=== PATIENT | male | born 1945 | race Caucasian/White ===

== ENCOUNTER → 2017-09-23 10:59 | Outpatient (CLI) | payer OTHER, MEDICARE, SELFPAY ==
[2017-09-23 12:15] LABS: Prostate Specific Ag, Diagnost 1.87 ng/mL (0.0-4.0)
== END ==
PROVIDERS: PCP Family Medicine; Visit Provider Urology
DX: R97.20 Elevated prostate specific antigen [PSA] (principal)
CPT/HCPCS: 36415; 84153

== ENCOUNTER → 2017-10-10 16:05 | Outpatient (CLI) | payer OTHER, MEDICARE, SELFPAY ==
--- NOTE | 2017-10-10 | XR_ITS ---
XR foot RT min 3V, XR foot LT min 3V Ordering Physician: Susana Tineo DPM Patient Age: 71 years: Male HISTORY: Increased pain at right foot bunion TECHNIQUE: Right foot 3 view weightbearing Left foot 3 view weightbearing COMPARISON :None ========= ...... RIGHT FOOT 3 view weightbearing Significant bunion deformity right foot. Asymmetric Hallux valgus deformity at right foot . Metatarsal-phalangeal angle 30 degree First-second Intermetatarsal angle AASHISH measures 13 up to 14 degrees. Modest but Adequate appearing plantar arch. Minimal spurring at insertion of Achilles tendon. Bones well mineralized. There is perhaps some mild degenerative changes at first MTP joint. Otherwise joint spaces fairly well-maintained.. Only borderline narrowing at the the IP joint of fourth toe and PIP joint third toe . Relative cortical thickening along the proximal, lateral aspect of the fourth metatarsal. This is seen bilaterally anatomical variation fourth metatarsal IMPRESSION: ===== Moderately pronounced hallux valgus deformity at the right foot ========= LEFT FOOT 3 view weightbearing Satisfactory relationships are seen at the left foot with only some mild prominence of the medial aspect of the first metatarsal head but no significant bunion deformity. . Metatarsal-phalangeal angle 15 degree First-second Intermetatarsal angle AASHISH measures 9 degrees.-Normal Bones well mineralized. Adequate plantar arch. Arthritic changes at p IP joint of toe noted. Bilaterally changes at DIP joint second and third toe. IMPRESSION==== Left foot intact with. No bunion deformity on left . Only mild degenerative changes at PIP joint fifth toe noted 1945
== END ==
PROVIDERS: Visit Provider Podiatrist
DX: M20.11 Hallux valgus (acquired), right foot (principal)
CPT/HCPCS: 73630

== ENCOUNTER → 2018-01-30 10:45 | Outpatient (CLI) | payer OTHER, MEDICARE, SELFPAY ==
--- NOTE | 2018-01-30 10:59 | XR_ITS ---
XR DEXA axial skeleton HISTORY: ITS.REASON: OSTEOPENIA ORDERING PHYSICIAN: Heber Campos MD PATIENT AGE: 72 years COMPARISON: 06/21/2014 FINDINGS: The BMD measured at the Right femoral neck is 0.677 g/cm squared with a T score of -3.0. The average density of the lumbar spine is 1.249 with a T score of 0.2. Decreased by 1.3% compared to 06/21/2014. The mean density of the hips is 0.875 with a T score of -1.6 which is decreased by 2.7% compared to the previous exam. IMPRESSION: Low bone density with a T score of -3.0 involving the right femur with high fracture risk. Treatment is suggested. Recommend follow-up exam in one year to monitor response.
[2018-01-31 15:17] LABS: Vitamin D 25 Hydroxy 16.7 ng/mL (30.0-100.0)
== END ==
PROVIDERS: PCP Family Medicine; Visit Provider Family Medicine
DX: M85.80 Other specified disorders of bone density and structure, unspecified site (principal)
CPT/HCPCS: 36415; 77080; 82652

== ENCOUNTER → 2018-04-24 14:43 | Outpatient (CLI) | payer OTHER, MEDICARE, SELFPAY ==
[2018-04-24 16:01] LABS: Prostate Specific Ag, Diagnost 0.84 ng/mL (0.0-4.0)
== END ==
PROVIDERS: Visit Provider Family Medicine
DX: C61 Malignant neoplasm of prostate (principal); E55.9 Vitamin D deficiency, unspecified
CPT/HCPCS: 36415; 82652; 84153

== ENCOUNTER → 2018-06-27 12:44 | Outpatient (POV) | payer OTHER, MEDICARE, SELFPAY ==
[2018-06-28 15:23] LABS: Prostate Specific Ag, Diagnost 0.9 ng/mL (0.0-4.0)
== END ==
PROVIDERS: Family Provider Family Medicine; PCP Family Medicine; Visit Provider Dermatology
DX: Z85.46 Personal history of malignant neoplasm of prostate (principal)
CPT/HCPCS: 36415; 84153; G0103

== ENCOUNTER → 2018-08-18 10:22 | Outpatient (CLI) | payer OTHER, SELFPAY ==
[2018-08-18 10:42] LABS: Basophils # 0.1 K/mm3 (0-0.2); Basophils % 0.8 % (0.1-2.0); Eosinophils # 0.2 K/mm3 (0.0-0.4); Eosinophils % 2.6 % (0.1-12.0); Hematocrit 43.9 % (42.0-52.0); Lymphocytes # 1.3 K/mm3 (0.7-4.5); Lymphocytes % 16.6 % (10-50); Mean Corpuscular Hemoglobin 29.3 pg (27.0-31.2); Mean Corpuscular Volume 91.6 fl (80-94); Mean Platelet Volume 6.7 fl (7.4-10.4); Monocytes # 0.5 K/mm3 (0.1-1.0); Monocytes % 6.7 % (1.7-9.3); Neutrophils # 5.6 K/mm3 (1.8-7.8); Neutrophils % 73.3 % (37.0-80.0); Platelet Count 328 K/mm3 (142-424); Red Blood Count 4.79 M/mm3 (4.60-6.20); Red Cell Distribution Width 13.3 % (11.5-17.5); White Blood Count 7.7 K/mm3 (4.8-10.8)
[2018-08-18 11:35] LABS: Erythrocyte Sedimentation Rate 11 mm/hr (0-20)
[2018-08-18 13:05] LABS: Alanine Aminotransferase 22 U/L (12-78); Albumin Level 3.1 gm/dL (3.4-5.0); Albumin/Globulin Ratio 0.9 (1.1-1.8); Alkaline Phosphatase 96 U/L (46-116); Anion Gap 16.1 mEq/L (5-15); Aspartate Amino Transferase 13 U/L (15-37); Bilirubin,Total 0.4 mg/dL (0.2-1.0); Blood Urea Nitrogen 14 mg/dL (7-18); Carbon Dioxide 23 mmol/L (21.0-32.0); Chloride 106 mmol/L (98-107); Creatinine,Serum 1.76 mg/dL (0.70-1.30); Estimated Glomerular Filt Rate 38 ml/min (>60); Ferritin 29 ng/mL (8-388); GFR (African American) 46 ML/MIN (>60); Globulin 3.3 gm/dl (1.3-3.2); Glucose 87 mg/dL (74-106); Potassium 4.1 mmoL/L (3.5-5.1); Sodium 141 mmol/L (136-145); Total Protein,Serum 6.4 gm/dL (6.4-8.2)
[2018-08-18 13:08] LABS: C-Reactive Protein < 0.2 mg/L (0.0-0.9)
[2018-08-19 10:12] LABS: Iron 113 ug/dL (38-169); UIBC 194 ug/dL (111-343)
[2018-08-21 09:35] LABS: Iron Saturation 37 % (15-55); Vitamin B12 <150 pg/mL (232-1245); Vitamin D 25 Hydroxy 25.4 ng/mL (30.0-100.0)
== END ==
PROVIDERS: Visit Provider Internal Medicine Gastroenterology
DX: K50.90 Crohn's disease, unspecified, without complications (principal)
CPT/HCPCS: 36415; 80053; 82607; 82652; 82728; 83540; 83550; 85025; 85651; 86140

== ENCOUNTER → 2019-02-16 16:15 | Outpatient (CLI) | payer OTHER, SELFPAY ==
[2019-02-19 15:39] LABS: Testosterone,Free 3.5 pg/mL (6.6-18.1)
== END ==
PROVIDERS: Visit Provider Family Medicine
DX: C61 Malignant neoplasm of prostate (principal); R79.89 Other specified abnormal findings of blood chemistry
CPT/HCPCS: 36415; 84402

== ENCOUNTER → 2019-02-23 07:30 | Outpatient (CLI) | payer OTHER, SELFPAY ==
[2019-02-27 19:55] LABS: Testosterone, Total, LC/MS 266.1 ng/dL (264.0-916.0); Testosterone,Free 6.8 pg/mL (6.6-18.1)
== END ==
PROVIDERS: Visit Provider Urology
DX: C61 Malignant neoplasm of prostate (principal); R79.89 Other specified abnormal findings of blood chemistry
CPT/HCPCS: 36415; 84402; 84403

== ENCOUNTER → 2019-04-02 11:14 | Outpatient (CLI) | payer OTHER, SELFPAY ==
--- NOTE | 2019-04-02 11:15 | CT_ITS ---
CT heart w calcium score INDICATION: Evaluate for coronary artery disease ITS.REASON: d ORDERING PHYSICIAN: Narinder Tejeda MD PATIENT AGE: 73 years COMPARISON: TECHNIQUE: Contrast Used:None Oral Contrast: None Axial images were obtained. Sagittal and coronal reformatted images are reviewed as well. All CT scans at the facility use one or more dose reduction, viz: automated exposure control, ma/kV adjustment per patient size (including targeted exams where dose is matched to indication, i.e. head), or iterative reconstruction technique. FINDINGS: The coronary artery calcium score is 67 suggesting a mild plaque burden with moderate cardiovascular disease risk. Selected images show moderate sized hiatal hernia. There is also some calcification of the aortic valve. IMPRESSION: Coronary calcium score of 67
== END ==
PROVIDERS: PCP Family Medicine; Visit Provider Internal Medicine Cardiovascular Disease
DX: R06.02 Shortness of breath (principal)
CPT/HCPCS: 75571; 93306

== ENCOUNTER → 2019-04-02 12:53 | Outpatient (CLI) | payer OTHER, SELFPAY ==
--- NOTE | 2019-04-02 13:00 | CA_ITS ---
PROCEDURE: 2-D M-mode and color Doppler study INDICATIONS FOR THE TEST: Chest pain X COPD Heart Murmur Tobacco Smoking Palpitations Fatigue Syncope Edema Hypertension Diabetes Mellitus Rheumatic Fever SOB DYSON Obesity Hyperlipidemia Family History HD Additional History PATIENT INFORMATION HEIGHT: 70 WEIGHT:162 GENDER: Male B/P:110/70 2-D/M-MODE INTERPRETATION: 2-D MEASUREMENTS OBSERVED VALUES IN CMS Right Ventricular Dimension (RVDd) 2.1 Interventricular Septum (Thickness)(IVsd) 1.0 Left Ventricular Internal Dimensions(LVIDd) 5.3 Left Ventricular Posterior Wall (Thickness)(LVPWd) 1.0 Aortic Root 3.7 Aortic Cusp Separation 1.1 Left Atrial Dimensions (LAD) 3.7 2D 1. Left atrium is normal size, left ventricle is normal size, there is no concentric left ventricular hypertrophy, visually estimated ejection fraction 55% with no regional wall motion abnormality. 2. The right atrium and right ventricle are normal size and contractility. 3. The aortic valve is thickened and calcified leaflet continue to display mobility. 4. The mitral and tricuspid valve leaflets are minimally thickened. 5. The pulmonic valve is poorly visualized. 6. No significant pericardial effusion noted. DOPPLER INTERROGATION: Doppler interrogation of the aortic, mitral and tricuspid valvular presence of mild mitral and tricuspid regurgitation, tricuspid regurgitation jet velocity is inadequate for calculation of the right ventricular systolic pressure, grade 1 diastolic dysfunction seen without tissue Doppler evidence of raised left atrial pressure. Inferior vena cava is not well visualized. CONCLUSION: 1. Normal left ventricular size, visually estimated ejection fraction 55% with no regional wall motion abnormality, there is no concentric left ventricular hypertrophy, diastolic parameters are within normal range. 2. Mild mitral and tricuspid regurgitation. 3. No significant pericardial effusion noted.
== END ==
PROVIDERS: Visit Provider Internal Medicine Cardiovascular Disease
DX: R89.9 Unspecified abnormal finding in specimens from other organs, systems and tissues (principal); R07.9 Chest pain, unspecified
CPT/HCPCS: 93306

== ENCOUNTER → 2019-04-04 11:38 | Outpatient (CLI) | payer OTHER, SELFPAY ==
--- NOTE | 2019-04-04 11:40 | NM_ITS ---
CARDIOLITE SPECT MYOCARDIAL PERFUSION LEXISCAN, REST AND STRESS: History: Shortness of breath, chest pain Procedure: Patient received 0.4 mg of intravenous Lexiscan, resting heart rate was 86 beats per resting blood pressure 142/90. With Lexiscan maximum heart achieved was 114 bpm which is less than 85% of the maximum predicted heart rate and a blood pressure was 140/75. With Lexiscan patient complained of nausea. Electrocardiogram: Resting electrocardiogram showed sinus rhythm, with Lexiscan there is less than 1.[address] segment depression noted from the baseline EKG. The EKG portion of the Lexiscan Myoview is nondiagnostic. Cardiac stress and resting SPECT images: Cardiac stress and resting SPECT images were obtained using technetium 99 Myoview 32.2 mCi stress and 10.2 mCi at rest. Gated SPECT further analysis of segmental wall motion and calculation of the ejection fraction also done. Cardiac stress and resting SPECT images show uniform myocardial activity without segmental perfusion abnormality, computer derived ejection fraction is 46% with no regional wall motion abnormality, right ventricle is normal size and contractility. Conclusion: 1. The EKG portion of the Lexiscan Myoview is nondiagnostic. 2. No scintigraphic evidence of reversible ischemia seen, right ejection fraction is 46% with no regional wall motion abnormality, right ventricle is normal size and contractility. 3. The Lexiscan Myoview study.
== END ==
PROVIDERS: PCP Internal Medicine Cardiovascular Disease; Visit Provider Internal Medicine Cardiovascular Disease
DX: R89.9 Unspecified abnormal finding in specimens from other organs, systems and tissues (principal); R06.02 Shortness of breath
CPT/HCPCS: 78452; 93017; A9502; J2785

== ENCOUNTER → 2019-07-17 08:06 | Outpatient (POV) | payer OTHER, SELFPAY | PROVIDERS: Visit Provider Dermatology | DX: Z00.00 Encounter for general adult medical examination without abnormal findings (principal) ==

== ENCOUNTER → 2019-08-28 08:09 | Outpatient (POV) | payer OTHER, SELFPAY | PROVIDERS: Visit Provider Dermatology | DX: Z00.00 Encounter for general adult medical examination without abnormal findings (principal) ==

== ENCOUNTER → 2019-12-05 13:42 | Outpatient (CLI) | payer OTHER, SELFPAY ==
[2019-12-05 14:54] LABS: Basophils % 0.3 % (0.1-2.0); Eosinophils % 0.2 % (0.1-12.0); Hematocrit 43.7 % (42.0-52.0); Hemoglobin 14.2 g/dL (14.1-18.0); Lymphocytes # 0.5 K/mm3 (0.7-4.5); Lymphocytes % 8.1 % (10-50); Mean Corpuscular HGB Conc 32.5 g/dL (31.8-35.4); Mean Corpuscular Hemoglobin 29.1 pg (27.0-31.2); Mean Corpuscular Volume 89.7 fl (80-94); Mean Platelet Volume 7.8 fl (7.4-10.4); Monocytes # 0.4 K/mm3 (0.1-1.0); Monocytes % 5.6 % (1.7-9.3); Neutrophils # 5.6 K/mm3 (1.8-7.8); Neutrophils % 85.7 % (37.0-80.0); Platelet Count 221 K/mm3 (142-424); Red Blood Count 4.87 M/mm3 (4.60-6.20); Red Cell Distribution Width 12.9 % (11.5-17.5); White Blood Count 6.6 K/mm3 (4.8-10.8)
[2019-12-05 14:56] LABS: MANUAL DIFFERENTIAL MANUAL DIFFERENTIAL (MANUAL DIFF)
[2019-12-05 17:00] LABS: Lymphocytes % 6 % (10-50); Monocytes % 2 % (2-9); Neutrophils % 92 % (42-76); Platelet Estimate Normal; RBC Morphology Normal; Total Cells Counted 100
== END ==
PROVIDERS: Visit Provider Family Medicine
DX: R50.9 Fever, unspecified (principal); R52 Pain, unspecified; J10.1 Influenza due to other identified influenza virus with other respiratory manifestations
CPT/HCPCS: 36415; 85007; 85025; 87275; 87276

== ENCOUNTER 2019-12-08 23:54 | Observation (INO) ==
[2019-12-09 00:32] LABS: Basophils % 0.2 % (0.1-2.0); Eosinophils % 0.2 % (0.1-12.0); Hematocrit 46.4 % (42.0-52.0); Hemoglobin 15.4 g/dL (14.1-18.0); Lymphocytes # 0.7 K/mm3 (0.7-4.5); Lymphocytes % 9.7 % (10-50); Mean Corpuscular HGB Conc 33.2 g/dL (31.8-35.4); Mean Corpuscular Volume 86.8 fl (80-94); Monocytes # 0.4 K/mm3 (0.1-1.0); Monocytes % 5.1 % (1.7-9.3); Neutrophils % 84.8 % (37.0-80.0); Platelet Count 211 K/mm3 (142-424); Red Blood Count 5.35 M/mm3 (4.60-6.20); Red Cell Distribution Width 12.5 % (11.5-17.5); White Blood Count 7.1 K/mm3 (4.8-10.8)
[2019-12-09 00:41] LABS: Albumin Level 3.7 g/dl (3.5-5.0); Albumin/Globulin Ratio 1.1 (1.1-1.8); Anion Gap 13.3 mEq/L (5-15); Bilirubin,Total 0.4 mg/dl (0.2-1.3); Calcium 8.4 mg/dl (8.4-10.2); Globulin 3.3 g/dL (1.3-3.2)
--- NOTE | 2019-12-09 00:54 | Emergency Department Note ---
ED Disposition Clinical Impression: Community acquired pneumonia Qualifiers: Laterality: left Lung location: lower lobe of lung Qualified Code(s): J18.9 - Pneumonia, unspecified organism Disposition: Admitted as Observation Condition on Discharge: Fair Referrals: Provider,Referral, [Primary Care Provider] - - Critical Care Critical Care Time: No Attestation: On 12/08/19, the high probability of a clinically significant, sudden or life threatening deterioration of the following system(s) required my full and direct attention, intervention and personal management. The time I documented below is in addition to time spent performing reported procedures but includes the following listed in this critical care notation. Medical Decision Making - Medical Records Medical records reviewed: Yes: I reviewed the patient's medical records. - Godwin Inquiry Pt receiving controlled substance: No Vital Signs: 12/08/19 23:54 12/08/19 23:55 12/09/19 00:13 Temperature 99.0 F Temperature Source Oral Oral Pulse Rate [Right] 100 H 107 H Respiratory Rate 18 18 Blood Pressure [Right Arm] 146/78 H 140/78 Blood Pressure Mean [Right Arm] 100 98 Blood Pressure Source [Right Arm] Automatic Cuff Blood Pressure Position [Right Arm] Supine 02 Sat by Pulse Oximetry 97 98 Oxygen Delivery Method Room Air Room Air 12/09/19 00:53 12/09/19 02:23 12/09/19 02:58 Temperature Temperature Source Pulse Rate [Right] 84 81 76 Respiratory Rate 16 16 16 Blood Pressure [Right Arm] 131/82 129/75 113/63 Blood Pressure Mean [Right Arm] 98 93 79 Blood Pressure Source [Right Arm] Blood Pressure Position [Right Arm] 02 Sat by Pulse Oximetry 98 96 96 Oxygen Delivery Method Room Air Room Air Room Air 12/09/19 03:28 12/09/19 04:00 12/09/19 04:29 Temperature Temperature Source Pulse Rate [Right] 73 66 70 Respiratory Rate 14 Blood Pressure [Right Arm] 106/63 L 109/61 L 111/44 L Blood Pressure Mean [Right Arm] 77 77 66 Blood Pressure Source [Right Arm] Blood Pressure Position [Right Arm] 02 Sat by Pulse Oximetry 96 97 97 Oxygen Delivery Method Room Air Room Air Room Air 12/09/19 05:10 12/09/19 05:28 12/09/19 06:02 Temperature 97.7 F Temperature Source Oral Pulse Rate [Right] 62 59 L 68 Respiratory Rate 14 14 Blood Pressure [Right Arm] 108/66 L 119/64 129/79 Blood Pressure Mean [Right Arm] 80 82 95 Blood Pressure Source [Right Arm] Blood Pressure Position [Right Arm] 02 Sat by Pulse Oximetry 96 98 98 Oxygen Delivery Method Room Air Room Air Room Air 12/09/19 06:34 12/09/19 07:01 12/09/19 07:30 Temperature Temperature Source Pulse Rate [Right] 61 64 64 Respiratory Rate 16 17 Blood Pressure [Right Arm] 135/75 137/84 133/82 Blood Pressure Mean [Right Arm] 95 101 99 Blood Pressure Source [Right Arm] Automatic Cuff Blood Pressure Position [Right Arm] Supine 02 Sat by Pulse Oximetry 98 98 98 Oxygen Delivery Method Room Air Room Air Room Air - Lab Data Lab results reviewed: Yes: I reviewed the patient's lab results. Lab Results 12/09/19 00:01: WBC 7.1, RBC 5.35, Hgb 15.4, Hct 46.4, MCV 86.8, MCH 28.8, MCHC 33.2, RDW 12.5, Plt Count 211, MPV 9.0, Neut % (Auto) 84.8 H, Lymph % (Auto) 9.7 L, [place] % (Auto) 5.1, Eos % (Auto) 0.2, Baso % (Auto) 0.2, Neut # (Auto) 6.0, Lymph # (Auto) 0.7, [place] # (Auto) 0.4, Eos # (Auto) 0.0, Baso # (Auto) 0.0 12/09/19 00:01: Sodium 134 L, Potassium 3.3 L, Chloride 99, Carbon Dioxide 25, Anion Gap 13.3, BUN 17, Creatinine 1.50 H, Estimated Creat Clear 43, Estimated GFR 46 L, Est GFR ( Amer) 56 L, Glucose 115 H, Calcium 8.4, Total Bilirubin 0.4, AST 27, ALT 14, Alkaline Phosphatase 92, Total Protein 7.0, Al bumin 3.7, Globulin 3.3 H, Albumin/Globulin Ratio 1.1 12/09/19 00:01: Lactate 1.4 12/09/19 00:01: Troponin I < 0.01 Result diagrams: 12/09/19 00:01 12/09/19 00:01 Orders (Tests/Meds): ED MEDICATIONS Generic Name Dose Route Start Last Admin Trade Name Yvan PRN Reason Stop Dose Admin Azithromycin 500 mg/ Sodium 250 mls @ 250 mls/hr 12/09/19 02:00 12/09/19 02:16 Chloride IV 12/23/19 01:59 250 mls/hr Q24H MARITZA Administration Protocol Ceftriaxone Sodium 1 gm/ 50 mls @ 100 mls/hr 12/09/19 02:00 12/09/19 02:16 Sodium Chloride IV 12/23/19 01:59 100 mls/hr Q24H MARITZA Administration Protocol Sodium Chloride 1,000 mls @ 100 mls/hr 12/09/19 02:15 12/09/19 02:16 Sod Chlor 0.9% 1000ml Bag IV 01/08/20 02:14 100 mls/hr .Q10H MARITZA Administration Discontinued Medications Generic Name Dose Route Start Last Admin Trade Name Yvan PRN Reason Stop Dose Admin Lactated Ringer's 1,000 mls @ 999 mls/hr 12/09/19 00:15 12/09/19 00:06 Lactated Ringer's 1000 Ml Bag IV 12/09/19 01:15 999 mls/hr .Q1H1M MARITZA Administration Lactated Ringer's 1,000 mls @ 999 mls/hr 12/09/19 01:15 12/09/19 01:05 Lactated Ringer's 1000 Ml Bag IV 12/09/19 02:15 999 mls/hr .Q1H1M MARITZA Administration Lactated Ringer's 1,000 mls @ 100 mls/hr 12/09/19 01:45 12/09/19 01:35 Lactated Ringer's 1000 Ml Bag IV 01/08/20 01:44 100 mls/hr .Q10H MARITZA Administration Sodium Chloride 1,000 mls @ 999 mls/hr 12/09/19 02:00 12/09/19 02:17 Sod Chlor 0.9% 1000ml Bag IV 12/09/19 03:00 Not Given .Q1H1M MARITZA Ketorolac Tromethamine 30 mg 12/09/19 00:43 12/09/19 00:45 Toradol 30mg/Ml Vial IV 12/09/19 00:44 30 mg ONCE ONE Administration ORDERS Category Date Time Status XR chest portable Stat Exams 12/09/19 00:03 Taken Blood Culture Stat Micro 12/09/19 00:01 Received - Radiology Data #1 Image(s): Chest Image Reviewed: Yes I reviewed the patient's radiology image Preliminary Findings: Abnormal (changes lt base ) - Physician Consults Physician Consulted: christy Reason -: Admission Resp/SOB HPI - General Chief Complaint: Fever Stated Complaint: Weak/ dehydration Time Seen by Provider: 12/09/19 00:00 Mode of Arrival: Ambulatory Source of Information: Patient, Medical Record Limitations: No Limitations Description of Symptoms (Recalled from ER Triage Doc. by RN): Pt states he feels weak and has not been able to eat or drink, (+) flu test, lost 10 lbs this week - History of Present Illness progrssive resp illness with fever and sob over the last few days has pending cov-19 test with pos flu about 4 days ago- has been on tamiflu but increased sx - MD Complaint: shortness of breath, cough Onset (ago): day(s) Context: recent illness Severity: moderate Associated symptoms: denies other symptoms, cough Treatment prior to arrival: none - Related Data Home oxygen amount: none Home Medications Medication Instructions Recorded Confirmed Cetirizine HCl [Zyrtec] 10 mg PO DAILY 07/20/18 07/28/18 Omeprazole [Omeprazole 40mg 40 mg PO DAILY 07/20/18 07/28/18 Capsule] Tamsulosin HCl [Flomax 0.4mg 0.4 mg PO HS 07/20/18 07/28/18 capsule] Previous Rx's Medication Instructions Recorded methylprednisolone 4 mg tablets in See Rx Instructions PO PER PKG DIR 02/15/19 a dose pack #21 tab montelukast 10 mg tablet 10 mg PO DAILY #60 tab 02/15/19 rosuvastatin 5 mg tablet 5 mg PO DAILY #30 tab 08/09/19 Allergies Allergy/AdvReac Type Severity Reaction Status Date / Time Iodinated Contrast Media Allergy Intermediate I-RASH Verified 07/20/18 11:08 [Iodinated Contrast Media - IV Dye] quinine Allergy Intermediate I-RASH Verified 07/20/18 11:08 [facility] History - Hepatitis A Screen Drug use history?: No High risk sexual behaviors?: No History of sexually transmitted infection?: No Currently employed?: No Childcare worker?: No Do you have indoor plumbing?: Yes Do you have electricity?: Yes Attestation statement:: This patient has been screened for Hepatitis A risk factors. I have reviewed the patient's past medical history: Yes Medical History: Reports:: Gastroesophageal Reflux Disease(GERD), Hiatal Hernia, Kidney Stones Denies:: Diabetes Mellitus Type 1, Diabetes Mellitus Type 2, Internal Pacemaker, Lung Disease, Seizures Other Medical History: Reports: Other (Crohn's) Other Surgeries: Yes: Appendectomy, Colon Resection, Hernia Repair, Other (ESWL, Elbow, L4-5 Lami). No: Pacemaker - Social History Smoking Status: Never smoker Tobacco Type: cigarettes # Packs/Day (cigarettes): 0 #Yrs smoked (if former smoker): 0 Alcohol Intake: never Alcohol Intake Frequency:: 0-2 drinks per day Substance Use Type: denies use Occupational Status: employed Housing: house Household Members: spouse Family Hx:: Unable to obtain ROS Obtained: Yes All systems reviewed & no additional complaints - Constitutional Constitutional: Reports as per HPI, Reports fever(s), Reports malaise, Reports weight loss - Eyes Eyes: Denies change in vision - ENT Ears, Nose, Mouth, and Throat: Denies sore throat - Cardiovascular Cardiovascular: Denies chest pain at rest, Denies dyspnea - Respiratory Respiratory: Yes cough, Yes non-productive cough, No coughing up blood - Gastrointestinal Gastrointestingal: Denies: abdominal pain - Genitourinary Male Genitourinary: Denies hematuria - Musculoskeletal Musculoskeletal: Denies joint pain, Denies joint swelling - Integumentary/Breasts Skin/Breast: Denies rash - Neurologic Neurologic: Denies headache(s), Denies seizure-like activity Physical Exam - General General appearance: alert - Head Head exam: normocephalic - Eye Eye exam: Present: PERRL, EOMI. Absent: scleral icterus - ENT ENT exam: Present: mucous membranes moist - Neck Neck exam: Present: trachea midline - Respiratory Respiratory exam: Present: other (dec bs bilat ). Absent: respiratory distress - Cardiovascular Cardiovascular exam: Present: regular rate, systolic murmur - Abdominal Exam Abdominal exam: Present: soft - Extremities Exam Extremities exam: Present: full ROM - Neurological Exam Neurological exam: Present: alert, oriented X3, CN II-XII intact - Psychiatric Psychiatric exam: Present: normal affect - Skin Skin exam: Absent: rash
--- NOTE | 2019-12-09 09:00 | History & Physical Report ---
*Admission Date: 12/09/19 *Chief complaint: Cough, weakness, fever *History of present illness: 73-year-old gentleman with recent diagnosis of flu A. Presented to the hospital last night due to worsening cough, dyspnea, fatigue. Over the past week he has been at home with poor p.o. intake feeling very ill. Has had waxing and waning fever has developed progressive shortness of breath with dry cough. Also complains of some mild left-sided rib/lower chest pain. Started Tamiflu 4 days ago. 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 Initial work-up in the ER showed concern for dehydration (patient has lost 10 pounds in the past week), chest x-ray concerning for left sided groundglass opacities, and tachycardia. Patient admitted for concern for pneumonia and worsening flu symptoms. On assessment this morning he has responded well to 3 L of IV fluid resuscitation however urine output is still suboptimal. States he is feeling somewhat better but still quite fatigued. Denies nausea, vomiting, diarrhea but does complain of heartburn and soreness in his left chest with coughing. Initiated on antibiotics overnight for community-acquired pneumonia. Continues to require inpatient management. [facility] History I have reviewed the patient's past medical history: Yes Medical History: Reports:: Gastroesophageal Reflux Disease(GERD), Hiatal Hernia, Kidney Stones Denies:: Diabetes Mellitus Type 1, Diabetes Mellitus Type 2, Internal Pacemaker, Lung Disease, Seizures *Have you ever received a pneumonia vaccine?: Yes *Have you received a flu vaccine this season?: Yes Other Medical History: Reports: Other (Crohn's) Other Surgeries: Yes: Appendectomy, Colon Resection, Hernia Repair, Other (ESWL, Elbow, L4-5 Lami). No: Pacemaker - *Social History Smoking Status: Never smoker Tobacco Type: cigarettes # Packs/Day (cigarettes): 0 #Yrs smoked (if former smoker): 0 Alcohol Intake: never Alcohol Intake Frequency:: 0-2 drinks per day Substance Use Type: denies use *Occupational Status:: employed Housing: house Household Members: spouse *Travel in the last 8 weeks: None Family Hx:: Unable to obtain Review of Systems - Review of Systems Review of systems:: pertinent systems reviewed and negative unless documented below (14 point review of systems performed, pertinent positives and negatives as per HPI) - *Neurologic Denies headache(s), Denies seizure-like activity Meds Home Medications Medication Instructions Recorded Confirmed Type Cetirizine HCl [Zyrtec] 10 mg PO DAILYP PRN 07/20/18 12/09/19 History Allergies Allergy/AdvReac Type Severity Reaction Status Date / Time Iodinated Contrast Media Allergy Intermediate I-RASH Verified 07/20/18 11:08 [Iodinated Contrast Media - IV Dye] quinine Allergy Intermediate I-RASH Verified 07/20/18 11:08 Exam Vital signs and Labs for Last 24 Hours: Temp Pulse Resp BP Pulse Ox 98.4 F 73 17 116/66 98 12/09/19 08:50 12/09/19 08:50 12/09/19 08:50 12/09/19 08:50 12/09/19 07:30 Laboratory Results - last 24 hr 12/09/19 00:01: WBC 7.1, RBC 5.35, Hgb 15.4, Hct 46.4, MCV 86.8, MCH 28.8, MCHC 33.2, RDW 12.5, Plt Count 211, MPV 9.0, Neut % (Auto) 84.8 H, Lymph % (Auto) 9.7 L, [place] % (Auto) 5.1, Eos % (Auto) 0.2, Baso % (Auto) 0.2, Neut # (Auto) 6.0, Lymph # (Auto) 0.7, [place] # (Auto) 0.4, Eos # (Auto) 0.0, Baso # (Auto) 0.0 12/09/19 00:01: Sodium 134 L, Potassium 3.3 L, Chloride 99, Carbon Dioxide 25, Anion Gap 13.3, BUN 17, Creatinine 1.50 H, Estimated Creat Clear 43, Estimated GFR 46 L, Est GFR ( Amer) 56 L, Glucose 115 H, Calcium 8.4, Total Bilirubin 0.4, AST 27, ALT 14, Alkaline Phosphatase 92, Total Protein 7.0, Albumin 3.7, Globulin 3.3 H, Albumin/Globulin Ratio 1.1 12/09/19 00:01: Lactate 1.4 12/09/19 00:01: Troponin I < 0.01 I & O for Last 24 hours: Intake & Output 12/06/19 12/07/19 12/08/1922/20 23:59 23:59 23:59 23:59 Intake Total 2350 / 2350 Output Total 375 / 375 Balance 1974 Weight 68.946 kg - Constitutional mild distress, average body habitus - *Routine HEENT Exam Head: Present: normocephalic Eye: Present: EOMI, PERRL ENT: Present: mucous membranes moist - *Routine Neck Exam Present: supple. Absent: lymphadenopathy - *Routine Respiratory Exam Comments: Good air movement bilaterally, crackles best heard in left posterior lung base, no wheeze. - *Routine Cardiovascular Exam Present: RRR - *Routine Abdominal Exam Present: soft, normoactive bowel sounds. Absent: tenderness - *Routine Extremities Exam Absent: cyanosis, clubbing, edema - *Routine Skin Exam Present: warm. Absent: rash - *Routine Neurological Exam Present: alert, oriented X3 Assessment and Plan (1) Influenza A Current visit: Yes Status: Acute Category: Medical Code(s): J10.1 - Influenza due to other identified influenza virus with other respiratory manifestations Continue Tamiflu while admitted, positive per rapid swab in clinic in the outpatient setting. (2) Chronic kidney disease, stage III (moderate) Current visit: Yes Status: Chronic Category: Medical Code(s): N18.3 - Chronic kidney disease, stage 3 (moderate) Caution with nephrotoxins, will monitor kidney function daily (3) Dehydration Current visit: Yes Status: Acute Category: Medical Code(s): E86.0 - Dehydration Improved with fluid resuscitation, continue maintenance IV fluids while encoura ging p.o. intake (4) Community acquired pneumonia Current visit: Yes Status: Acute Qualifiers: Laterality: left Lung location: lower lobe of lung Qualified Code(s): J18.9 - Pneumonia, unspecified organism Category: Medical Code(s): J18.9 - Pneumonia, unspecified organism Thought to be secondary to the flu, empiric antibiotics initiated, continue IV antibiotics while admitted. Will transition oral antibiotics in the morning. Additionally patient had Coban 19 test obtained earlier this week, awaiting result. If patient has clinical decline, change in respiratory status, or positive finding on skaggs test, will pursue CT of chest (5) Heartburn Current visit: Yes Status: Acute Category: Medical Code(s): R12 - Heartburn Take Zantac at home as needed though not regularly. Will treat initially with famotidine and Tums. If no improvement, will advance to PPI
--- NOTE | 2019-12-09 13:54 | Pharmacy Consult Notes ---
[facility] Pharmacy VTE Monitoring - Patient Demographics Admission date: 12/09/19 Report Date: 12/09/19 Time: 13:53 Allergies/Adverse Reactions: Patient Allergies Iodinated Contrast Media [Iodinated Contrast Media - IV Dye] Allergy (Intermediate, Verified 07/20/18 11:08) I-RASH quinine Allergy (Intermediate, Verified 07/20/18 11:08) I-RASH Height: 1.75 m Weight: 71.838 kg Patient Problems: Current Active Problems Community acquired pneumonia (Acute) Influenza A (Acute) Chronic kidney disease, stage III (moderate) (Chronic) Dehydration (Acute) Heartburn (Acute) - VTE Risk Labs: VTE Related Lab Results Hgb 15.4 g/dL (14.1-18.0) 12/09/19 00:01 Hct 46.4 % (42.0-52.0) 12/09/19 00:01 Plt Count 211 K/mm3 (142-424) 12/09/19 00:01 BUN 17 mg/dl (9-20) 12/09/19 00:01 Creatinine 1.50 mg/dl (0.66-1.25) H 12/09/19 00:01 Estimated Creat Clear 43 mL/min (50-200) 12/09/19 00:01 Was VTE Risk Assessment Performed: Yes VTE Score: 3 VTE Risk Level: Low Risk - Prophylaxis Types of VTE Prophylaxis: TEDS Knee High (JOHN HOSE ORDER PLACED) Location of Applied Device: Not Applicable
[2019-12-10 05:08] LABS: Basophils % 0.2 % (0.1-2.0); Eosinophils % 0.6 % (0.1-12.0); Hemoglobin 12.7 g/dL (14.1-18.0); Lymphocytes # 0.6 K/mm3 (0.7-4.5); Lymphocytes % 11.7 % (10-50); Mean Corpuscular HGB Conc 33.5 g/dL (31.8-35.4); Mean Corpuscular Volume 87.3 fl (80-94); Mean Platelet Volume 7.9 fl (7.4-10.4); Monocytes # 0.3 K/mm3 (0.1-1.0); Monocytes % 5.9 % (1.7-9.3); Neutrophils # 4.5 K/mm3 (1.8-7.8); Neutrophils % 81.6 % (37.0-80.0); Platelet Count 162 K/mm3 (142-424); Red Blood Count 4.35 M/mm3 (4.60-6.20); Red Cell Distribution Width 12.6 % (11.5-17.5); White Blood Count 5.5 K/mm3 (4.8-10.8)
[2019-12-10 05:19] LABS: Albumin Level 2.6 g/dl (3.5-5.0); Anion Gap 10.3 mEq/L (5-15); Calcium 7.7 mg/dl (8.4-10.2); Globulin 2.7 g/dL (1.3-3.2); Total Protein,Serum 5.3 g/dl (6.3-8.2)
[2019-12-10 05:22] LABS: Bilirubin,Total 0.1 mg/dl (0.2-1.3)
--- NOTE | 2019-12-10 09:26 | Progress Note ---
Internal Medicine - PN: Subj *Date: 12/10/19 *Time: 09:23 Interval history: Overall patient feels better, has been able to get up and shower. No issues with shortness of air. Exam Vital signs and Labs for Last 24 Hours: Temp Pulse Resp BP Pulse Ox 97.7 F 59 L 18 110/70 96 12/10/19 08:00 12/10/19 08:00 12/10/19 08:00 12/10/19 08:00 12/10/19 08:00 Laboratory Results - last 24 hr 12/10/19 04:58: WBC 5.5, RBC 4.35 L, Hgb 12.7 L, Hct 38.0 L, MCV 87.3, MCH 29.3, MCHC 33.5, RDW 12.6, Plt Count 162, MPV 7.9, Neut % (Auto) 81.6 H, Lymph % (Auto) 11.7, Archuleta % (Auto) 5.9, Eos % (Auto) 0.6, Baso % (Auto) 0.2, Neut # (Auto) 4.5, Lymph # (Auto) 0.6 L, Archuleta # (Auto) 0.3, Eos # (Auto) 0.0, Baso # (Auto) 0.0 12/10/19 04:58: Sodium 134 L, Potassium 3.3 L, Chloride 104, Carbon Dioxide 23, Anion Gap 10.3, BUN 12 D, Creatinine 1.20, Estimated Creat Clear 56, Estimated GFR 59, Est GFR ( Amer) 72 D, Glucose 94, Calcium 7.7 L, Magnesium 1.6, Total Bilirubin 0.1 L, AST 21, ALT 10 L D, Alkaline Phosphatase 63, Total Protein 5.3 L, Albumin 2.6 L D, Globulin 2.7, Albumin/Globulin Ratio 1.0 L I & O for Last 24 hours: Intake & Output 12/07/19 12/08/19 12/09/19 12/10/19 11:59 11:59 11:59 11:59 Intake Total 2350 / 2350 2459 / 2459 Output Total 375 / 375 Balance 1974 2459 / 2459 Weight 158 lb 6 oz Narrative: No fever over the past 24 hours. Lungs have good air movement, very minimal rhonchi. Abdomen soft. Heart rate regular. No edema or clubbing. Weak but otherwise neurologically intact. ENT exam clear. EKG reviewed. Normal QT interval Assessment and Plan (1) Influenza A Current visit: Yes Status: Acute Category: Medical Code(s): J10.1 - Influenza due to other identified influenza virus with other respiratory manifestations (2) Chronic kidney disease, stage III (moderate) Current visit: Yes Status: Chronic Category: Medical Code(s): N18.3 - Chronic kidney disease, stage 3 (moderate) (3) Dehydration Current visit: Yes Status: Acute Category: Medical Code(s): E86.0 - Dehydration (4) Community acquired pneumonia Current visit: Yes Status: Acute Qualifiers: Laterality: left Lung location: lower lobe of lung Qualified Code(s): J18.9 - Pneumonia, unspecified organism Category: Medical Code(s): J18.9 - Pneumonia, unspecified organism (5) Heartburn Current visit: Yes Status: Acute Category: Medical Code(s): R12 - Heartburn (6) Pneumonia due to [facility] coronavirus Current visit: Yes Status: Acute Category: Medical Code(s): J12.89 - Other viral pneumonia; B97.29 - Other coronavirus as the cause of diseases classified elsewhere Patient overall is doing very nicely. Patient can be discharged home when he is eating well, discussed quarantine issues with patient. Discussed his normal EKG. Discussed ongoing treatment and prognosis which is good.
--- NOTE | 2019-12-10 16:12 | Electrocardiograph Report ---
APPROVED REPORT Exam: Resting ECG HR:65 bpm ECG Measurements Heart Rate 65 AXES TN 146 P 58 QRSd 72 QRS 42 QT 434 T18 QTc 451 <Conclusion> Normal sinus rhythm Normal ECG Electronically signed by : Selvin Cardenas, 12/10/2019 16:11:47
--- NOTE | 2019-12-11 09:11 | Progress Note ---
Internal Medicine - PN: Subj *Date: 12/11/19 *Time: 09:09 Interval history: Continues to be significantly weak. Poor p.o. intake. Temperature of 100.5 yesterday afternoon. Tolerating fair p.o. fluid intake. Still getting IV fluids. Dyspnea stable. No oxygen requirement at this time. Denies nausea, vomiting, diarrhea, chest pain. Very fatigued per report Exam Vital signs and Labs for Last 24 Hours: Temp Pulse Resp BP Pulse Ox 97.9 F 69 16 124/68 96 12/11/19 07:45 12/11/19 07:45 12/11/19 07:45 12/11/19 07:45 12/11/19 07:45 I & O for Last 24 hours: Intake & Output 12/08/19 12/09/19 12/10/19 12/11/19 23:59 23:59 23:59 23:59 Intake Total 3475 / 3475 4675 / 4675 1168 / 1168 Output Total 375 / 375 400 / 850 1100 / 1100 Balance 3100 / 3100 4275 / 3825 68 / 68 Weight 68.946 kg 71.838 kg Microbiology Reports for the Last 24 Hours: Microbiology 12/09/19 00:01 Blood Blood Culture - Preliminary NO GROWTH AFTER 48 HOURS 12/09/19 00:01 Blood Blood Culture - Preliminary NO GROWTH AFTER 48 HOURS Narrative: No fever over the past 24 hours. Lungs have good air movement, very minimal rhonchi. Abdomen soft. Heart rate regular. No edema or clubbing. Weak but otherwise neurologically intact. ENT exam clear. Assessment and Plan (1) Pneumonia due to [facility] coronavirus Current visit: Yes Status: Acute Category: Medical Code(s): J12.89 - Other viral pneumonia; B97.29 - Other coronavirus as the cause of diseases classified elsewhere (2) Influenza A Current visit: Yes Status: Acute Category: Medical Code(s): J10.1 - Influenza due to other identified influenza virus with other respiratory manifestations (3) Chronic kidney disease, stage III (moderate) Current visit: Yes Status: Chronic Category: Medical Code(s): N18.3 - Chronic kidney disease, stage 3 (moderate) (4) Dehydration Current visit: Yes Status: Acute Category: Medical Code(s): E86.0 - Dehydration (5) Community acquired pneumonia Current visit: Yes Status: Acute Qualifiers: Laterality: left Lung location: lower lobe of lung Qualified Code(s): J18.9 - Pneumonia, unspecified organism Category: Medical Code(s): J18.9 - Pneumonia, unspecified organism (6) Heartburn Current visit: Yes Status: Acute Category: Medical Code(s): R12 - Heartburn - Assessment and plan all Dx Assessment and Plan for all problems:: Patient overall is doing very nicely. Patient can be discharged home when he is eating well, discussed quarantine issues with patient. Discussed his normal EKG. Discussed ongoing treatment and prognosis which is good. Repeat EKG today to monitor QTc
[2019-12-12 07:31] LABS: Basophils % 0.3 % (0.1-2.0); Eosinophils # 0.1 K/mm3 (0.0-0.4); Eosinophils % 0.8 % (0.1-12.0); Hematocrit 40.1 % (42.0-52.0); Hemoglobin 13.7 g/dL (14.1-18.0); Lymphocytes # 0.7 K/mm3 (0.7-4.5); Lymphocytes % 11.4 % (10-50); Mean Corpuscular HGB Conc 34.1 g/dL (31.8-35.4); Mean Corpuscular Volume 86.6 fl (80-94); Mean Platelet Volume 8.5 fl (7.4-10.4); Monocytes # 0.5 K/mm3 (0.1-1.0); Monocytes % 7.7 % (1.7-9.3); Neutrophils # 4.9 K/mm3 (1.8-7.8); Neutrophils % 79.7 % (37.0-80.0); Platelet Count 197 K/mm3 (142-424); Red Blood Count 4.64 M/mm3 (4.60-6.20); Red Cell Distribution Width 12.3 % (11.5-17.5); White Blood Count 6.2 K/mm3 (4.8-10.8)
[2019-12-12 07:38] LABS: Anion Gap 10.8 mEq/L (5-15); Calcium 7.9 mg/dl (8.4-10.2)
--- NOTE | 2019-12-12 08:20 | Discharge Summary ---
General - General Admission date:: 12/09/19 Discharge date: 12/12/19 HPI HPI: 73-year-old gentleman with recent diagnosis of flu A. Presented to the hospital last night due to worsening cough, dyspnea, fatigue. Over the past week he has been at home with poor p.o. intake feeling very ill. Has had waxing and waning fever has developed progressive shortness of breath with dry cough. Also complains of some mild left-sided rib/lower chest pain. Started Tamiflu 4 days ago. 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 Initial work-up in the ER showed concern for dehydration (patient has lost 10 pounds in the past week), chest x-ray concerning for left sided groundglass opacities, and tachycardia. Patient admitted for concern for pneumonia and worsening flu symptoms. On assessment this morning he has responded well to 3 L of IV fluid resuscitation however urine output is still suboptimal. States he is feeling somewhat better but still quite fatigued. Denies nausea, vomiting, diarrhea but does complain of heartburn and soreness in his left chest with coughing. Initiated on antibiotics overnight for community-acquired pneumonia. Continues to require inpatient management. Hospital Course Hospital Course: Patient was admitted as noted above. Coronavirus 19 testing was positive. In addition to having strep pneumo PCR testing from his lungs. Patient was maintained on IV antibiotics, Plaquenil was started, patient improved over the next 3 or 4 days in a stepwise fashion. Is noted to have low-grade hypokalemia, this was treated with p.o. potassium today. Patient felt ready to go home, eating well, had recovered his sense of smell and taste. No vomiting or diarrhea today. Exam improved. He will be discharged home. I will follow him up via telehealth in 2 days. He will call back if he becomes hypoxic or shortness of air worsens. Objective Vital signs: Temp Pulse Resp BP Pulse Ox 98.3 F 54 L 14 140/80 96 12/12/19 04:00 12/12/19 04:00 12/12/19 04:00 12/12/19 04:00 12/12/19 04:00 Narrative: Patient is alert. Pleasant. Exam normal as noted below except for his mild global weakness. no acute distress - *Routine HEENT Exam Head: Present: normocephalic Eye: Present: EOMI, PERRL ENT: Present: mucous membranes moist - *Routine Neck Exam Present: supple - *Routine Respiratory Exam Present: CTA bilaterally - *Routine Cardiovascular Exam Present: RRR - *Routine Abdominal Exam Present: soft, normoactive bowel sounds. Absent: tenderness - *Routine Extremities Exam Absent: cyanosis, clubbing, edema - *Routine Skin Exam Present: warm. Absent: rash - Detailed Eye Exam Eyelids: Bilateral normal inspection Results Labs on day of discharge: Labs from last 24 hours 12/12/19 12/12/19 07:18 07:18 WBC 6.2 RBC 4.64 Hgb 13.7 L Hct 40.1 L MCV 86.6 MCH 29.5 MCHC 34.1 RDW 12.3 Plt Count 197 MPV 8.5 Neut % (Auto) 79.7 Lymph % (Auto) 11.4 Metcalfe % (Auto) 7.7 Eos % (Auto) 0.8 Baso % (Auto) 0.3 Neut # (Auto) 4.9 Lymph # (Auto) 0.7 Metcalfe # (Auto) 0.5 Eos # (Auto) 0.1 Baso # (Auto) 0.0 Sodium 136 Potassium 2.8 L* Chloride 100 Carbon Dioxide 28 D Anion Gap 10.8 BUN 9 Creatinine 1.10 Estimated Creat Clear 59 Estimated GFR 65 Est GFR ( Amer) 79 Glucose 86 Calcium 7.9 L Magnesium 1.7 Preliminary micro results at discharge 12/09/19 00:01 Blood Culture - Preliminary Blood NO GROWTH AFTER 48 HOURS 12/09/19 00:01 Blood Culture - Preliminary Blood NO GROWTH AFTER 48 HOURS DS: Diagnosis - Discharge Diagnosis (1) Pneumonia due to [facility] coronavirus Status: Acute (2) Influenza A Status: Acute (3) Chronic kidney disease, stage III (moderate) Status: Chronic (4) Dehydration Status: Acute (5) Community acquired pneumonia Status: Acute Problem details: Secondary to Streptococcus pneumonia (6) Heartburn Status: Acute (7) Hypokalemia Status: Acute Discharge Plan - Patient Discharge Instructions ACTIVITY: Continue current activity DIET: continue same diet Patient Instructions: DI for Pneumonia -- Adult, DI for Influenza -- Adult, Preventing the Spread of Coronavirus Discharge Instructions - Follow up Plan Follow up with: Selvin Cardenas MD [Staff Physician] - Disposition: Home, Self-[facility] Medications: Home Medications Medication Instructions Recorded Confirmed Type Cetirizine HCl [Zyrtec] 10 mg PO DAILYP PRN 07/20/18 12/09/19 History Cefdinir [Omnicef 300mg Capsule] 300 mg PO BID #10 cap 12/12/19 Rx Hydroxychloroquine Sulfate 200 mg OP DAILY 7 Days #14 tab 12/12/19 Rx [Plaquenil 200mg tablet] Potassium Chloride [K-Tab ER 20 20 meq PO DAILY 5 Days #5 tab 12/12/19 Rx mEq] Prescriptions/Medication Reconciliation: New Cefdinir [Omnicef 300mg Capsule] 300 mg PO BID #10 cap Potassium Chloride [K-Tab ER 20 mEq] 20 meq PO DAILY 5 Days #5 tab Hydroxychloroquine Sulfate [Plaquenil 200mg tablet] 200 mg OP DAILY 7 Days #14 tab Discontinued Cetirizine HCl [Zyrtec] 10 mg PO DAILYP PRN PRN Reason: ALLERGIES - Problem Reconciliation Problems Reviewed?: Yes
--- NOTE | 2019-12-12 21:39 | Electrocardiograph Report ---
APPROVED REPORT Exam: Resting ECG HR:69 bpm ECG Measurements Heart Rate 69 AXES MI 146 P 35 QRSd 82 QRS 23 QT 432 T11 QTc 462 <Conclusion> Normal sinus rhythm Normal ECG Electronically signed by : Selvin Cardenas, 12/12/2019 21:38:48
== END 2019-12-12 12:00 | disposition home or self-care (01) ==
LOC: 2ND 23:54 → ER 23:54 → 2ND 12-09 09:26
PROVIDERS: ADMIT Internal Medicine Adolescent Medicine; ATTEND Internal Medicine Adolescent Medicine
DX: K21.9 Gastro-esophageal reflux disease without esophagitis; E86.0 Dehydration; J10.08 Influenza due to other identified influenza virus with other specified pneumonia; N18.3 Chronic kidney disease, stage 3 (moderate); R00.0 Tachycardia, unspecified; Z87.19 Personal history of other diseases of the digestive system; J13 Pneumonia due to Streptococcus pneumoniae; Z87.442 Personal history of urinary calculi; Z90.49 Acquired absence of other specified parts of digestive tract; Z91.041 Radiographic dye allergy status; E87.6 Hypokalemia; Z88.8 Allergy status to other drugs, medicaments and biological substances; K50.90 Crohn's disease, unspecified, without complications; Z79.899 Other long term (current) drug therapy; B97.29 Other coronavirus as the cause of diseases classified elsewhere; Z87.39 Personal history of other diseases of the musculoskeletal system and connective tissue
CPT/HCPCS: 36415; 71010; 71045; 80048; 80053; 83605; 83735; 84484; 85025; 87040; 93005; 96365; 96367; 96375; 99285; G0378; J0456; J2405

== ENCOUNTER → 2019-12-27 10:45 | Outpatient (CLI) | payer BC, SELFPAY ==
[2019-12-28 18:07] LABS: Covid-19 Nasal PCR Sendout Lex DETECTED
--- NOTE | 2019-12-28 18:17 | PC.NURSE ---
Notified Dr Cardenas of POSITIVE COVID results. Dr Cardenas to notify patient, results faxed to [facility].
== END ==
PROVIDERS: Visit Provider Internal Medicine Adolescent Medicine
DX: R50.9 Fever, unspecified (principal); R05 Cough

== ENCOUNTER → 2020-01-02 11:37 | Outpatient (CLI) | payer BC, SELFPAY ==
[2020-01-02 12:00] LABS: Basophils # 0.1 K/mm3 (0-0.2); Basophils % 0.6 % (0.1-2.0); Eosinophils # 0.2 K/mm3 (0.0-0.4); Eosinophils % 2.6 % (0.1-12.0); Hematocrit 40.5 % (42.0-52.0); Hemoglobin 13.5 g/dL (14.1-18.0); Lymphocytes # 0.8 K/mm3 (0.7-4.5); Lymphocytes % 9.8 % (10-50); Mean Corpuscular HGB Conc 33.3 g/dL (31.8-35.4); Mean Corpuscular Hemoglobin 29.6 pg (27.0-31.2); Mean Corpuscular Volume 88.9 fl (80-94); Mean Platelet Volume 7.3 fl (7.4-10.4); Monocytes # 0.5 K/mm3 (0.1-1.0); Monocytes % 5.9 % (1.7-9.3); Neutrophils # 6.8 K/mm3 (1.8-7.8); Neutrophils % 81.1 % (37.0-80.0); Platelet Count 305 K/mm3 (142-424); Red Blood Count 4.55 M/mm3 (4.60-6.20); White Blood Count 8.3 K/mm3 (4.8-10.8)
[2020-01-02 13:29] LABS: Alanine Aminotransferase 23 U/L (12-78); Albumin Level 3.5 g/dl (3.5-5.0); Albumin/Globulin Ratio 1.2 (1.1-1.8); Alkaline Phosphatase 98 U/L (38-126); Aspartate Amino Transferase 23 U/L (17-59); Bilirubin,Total 0.3 mg/dl (0.2-1.3); Blood Urea Nitrogen 15 mg/dl (9-20); Calcium 8.8 mg/dl (8.4-10.2); Carbon Dioxide 23 mmol/L (22.0-30.0); Chloride 110 mmol/L (98-107); Estimated Glomerular Filt Rate 54 ml/min (>60); GFR (African American) 65 ML/MIN (>60); Globulin 2.9 g/dL (1.3-3.2); Glucose 77 mg/dl (74-100); Sodium 141 mmol/L (136-145); Total Protein,Serum 6.4 g/dl (6.3-8.2)
[2020-01-02 13:58] LABS: Prostate Specific Ag Screen 0.1 ng/ml (0.0-4.0)
== END ==
PROVIDERS: Visit Provider Internal Medicine Adolescent Medicine
DX: U07.1 COVID-19 (principal); Z85.46 Personal history of malignant neoplasm of prostate
CPT/HCPCS: 36415; 80053; 85025; G0103

== ENCOUNTER → 2020-02-12 11:05 | Outpatient (CLI) | payer BC, SELFPAY ==
--- NOTE | 2020-02-12 11:11 | XR_ITS ---
PROCEDURE: XR CHEST 2V CLINICAL HISTORY: DYSPNEA ON EXERTION COMPARISON: XR CHEST PORTABLE from 12/09/2019 FINDINGS: The cardiomediastinal silhouette and pulmonary vascularity are within normal limits. The lungs are clear without infiltrates, suspicious nodules, or pleural effusions. There is a hiatal hernia noted. There are old bilateral rib fractures. IMPRESSION: Hiatal hernia, no acute finding Dictated by: Dick De Leon MD 02/12/2020 11:26 Electronically signed by Dick De Leon MD in [place] 02/12/2020 11:26
== END ==
PROVIDERS: PCP Internal Medicine Adolescent Medicine; Visit Provider Internal Medicine Adolescent Medicine
DX: R06.09 Other forms of dyspnea (principal)
CPT/HCPCS: 71046

== ENCOUNTER 2020-02-21 20:36 | Inpatient (IN) | payer BC, MEDICARE, SELFPAY ==
[2020-02-21 20:42] VITALS: BP 145/95; PULSE 79; RESP 18; TEMP 36.7; O2SAT 98; BMI 29.6
--- NOTE | 2020-02-21 20:46 | CT_ITS ---
PROCEDURE: CT ABDOMEN PELVIS WO CON CLINICAL INDICATION: abd Right-sided flank pain, history kidney stones COMPARISON: ABDPELW/O CT ABD PELVIS W/O CONTRAST from 07/11/2017 TECHNIQUE: Axial images obtained with sagittal and coronal reformats. All CT scans at the facility use one or more dose reduction, viz: automated exposure control, ma/kV adjustment per patient size (including targeted exams where dose is matched to indication, i.e. head), or iterative reconstruction technique. FINDINGS: LOWER THORAX: There is scarring within the lingula with atelectatic changes in the lower lobes. There is a large hiatal hernia in a right-sided Bochdalek's hernia containing peritoneal fat along with some peritoneal vessels. Borderline cardiomegaly with mild aortic valve calcifications are noted. ABDOMEN & PELVIS: The liver, gallbladder, spleen, adrenal glands, and pancreas have an unremarkable appearance. There are numerous bilateral renal calculi measuring up to 6 mm in the lower pole on the right and 7 mm in the upper pole on the left. There is a 4.8 cm right renal cyst. There is moderate right hydronephrosis and hydroureter secondary to a 5 mm stone in the mid aspect of the right ureter at the L3-L4 level. A 1 cm isodense the projects off the medial aspect of the left kidney and may be due to small cyst No intestinal obstruction or free air. Partial right hemicolectomy noted with ileo colonic anastomosis. No evidence of intestinal obstruction or free air. There multiple jejunal diverticula as before. There are few scattered small mesenteric lymph nodes not significantly changed. There is colonic diverticulosis but no evidence of diverticulitis. Urinary bladder wall is slightly thickened and could be due to nondistention or cystitis. Artifact is present from prostate seed implants. There are degenerative changes in the lumbar spine and hips. IMPRESSION: 1. 5 mm obstructing right mid ureteral stone with moderate right hydroureteronephrosis 2. Bilateral nephrolithiasis 3. Large hiatal hernia 4. Right-sided Bochdalek's hernia unchanged 5. Other nonacute findings as described above. Dictated by: Dick De Leon MD 02/21/2020 22:46 Electronically signed by Dick De Leon MD in [place] 02/21/2020 22:46
[2020-02-21 21:08] LABS: Basophils # 0.1 K/mm3 (0-0.2); Basophils % 0.9 % (0.1-2.0); Eosinophils # 0.3 K/mm3 (0.0-0.4); Eosinophils % 2.3 % (0.1-12.0); Hematocrit 41.8 % (42.0-52.0); Hemoglobin 14.2 g/dL (14.1-18.0); Lymphocytes # 1.4 K/mm3 (0.7-4.5); Lymphocytes % 9.7 % (10-50); Mean Corpuscular HGB Conc 34.1 g/dL (31.8-35.4); Mean Corpuscular Hemoglobin 30.8 pg (27.0-31.2); Mean Corpuscular Volume 90.5 fl (80-94); Mean Platelet Volume 7.4 fl (7.4-10.4); Monocytes # 0.8 K/mm3 (0.1-1.0); Monocytes % 5.6 % (1.7-9.3); Neutrophils # 11.4 K/mm3 (1.8-7.8); Neutrophils % 81.5 % (37.0-80.0); Platelet Count 314 K/mm3 (142-424); Red Blood Count 4.62 M/mm3 (4.60-6.20); Red Cell Distribution Width 14.2 % (11.5-17.5)
[2020-02-21 21:09] LABS: Chloride 104 mmol/L (98-107); Potassium 3.4 mmoL/L (3.5-5.1); Sodium 140 mmol/L (136-145)
[2020-02-21 21:11] LABS: Amylase 167 U/L (30-110)
[2020-02-21 21:12] LABS: Alanine Aminotransferase 17 U/L (12-78); Albumin/Globulin Ratio 1.2 (1.1-1.8); Alkaline Phosphatase 109 U/L (38-126); Anion Gap 13.4 mEq/L (5-15); Aspartate Amino Transferase 26 U/L (17-59); Bilirubin,Total 0.4 mg/dl (0.2-1.3); Blood Urea Nitrogen 16 mg/dl (9-20); Calcium 8.6 mg/dl (8.4-10.2); Carbon Dioxide 26 mmol/L (22.0-30.0); Creatinine Clearance Estimated 32 mL/min (50-200); Estimated Glomerular Filt Rate 28 ml/min (>60); GFR (African American) 34 ML/MIN (>60); Globulin 3.4 g/dL (1.3-3.2); Glucose 107 mg/dl (74-100); Lipase 121 U/L (23-300); Total Protein,Serum 7.4 g/dl (6.3-8.2)
[2020-02-21 21:21] VITALS: BP 149/76; PULSE 79; RESP 18; TEMP 36.7; O2SAT 98
--- NOTE | 2020-02-21 21:44 | PC.NURSE ---
on phone with dr gee
--- NOTE | 2020-02-21 21:50 | PC.NURSE ---
paged mady parker
[2020-02-21 21:52] VITALS: BP 139/72; PULSE 71; RESP 18; O2SAT 98
--- NOTE | 2020-02-21 21:58 | HMH.EDUROGM ---
ED Disposition Clinical Impression: Renal colic on right side, Obstructive uropathy, MAISHA (acute kidney injury) Disposition: Admitted As Inpatient Condition on Discharge: Good Instructions: DI for Acute Abdomen Referrals: Selvin Cardenas MD [Primary Care Provider] - - Critical Care Critical Care Time: No Attestation: On 02/21/20, the high probability of a clinically significant, sudden or life threatening deterioration of the following system(s) required my full and direct attention, intervention and personal management. The time I documented below is in addition to time spent performing reported procedures but includes the following listed in this critical care notation. Medical Decision Making - Medical Records Medical records reviewed: Yes: I reviewed the patient's medical records. - Godwin Inquiry Pt receiving controlled substance: No Vital Signs: 02/21/20 20:42 02/21/20 21:21 02/21/20 21:52 Temperature 98.1 F 98.0 F Temperature Source Oral Oral Pulse Rate [Right Radial] 79 79 71 Respiratory Rate 18 18 18 Blood Pressure [Right Arm] 145/95 H 149/76 H 139/72 Blood Pressure Mean [Right Arm] 111 100 94 Blood Pressure Source [Right Arm] Automatic Cuff Automatic Cuff Automatic Cuff Blood Pressure Position [Right Arm] Supine Sitting Sitting 02 Sat by Pulse Oximetry 98 98 98 Oxygen Delivery Method Room Air - Lab Data Lab results reviewed: Yes: I reviewed the patient's lab results. Lab Results 02/21/20 20:48: WBC 14.0 H, RBC 4.62, Hgb 14.2, Hct 41.8 L, MCV 90.5, MCH 30.8, MCHC 34.1, RDW 14.2, Plt Count 314, MPV 7.4, Neut % (Auto) 81.5 H, Lymph % (Auto) 9.7 L, Delta % (Auto) 5.6, Eos % (Auto) 2.3, Baso % (Auto) 0.9, Neut # (Auto) 11.4 H, Lymph # (Auto) 1.4, Delta # (Auto) 0.8, Eos # (Auto) 0.3, Baso # (Auto) 0.1 02/21/20 20:48: Sodium 140, Potassium 3.4 L, Chloride 104, Carbon Dioxide 26, Anion Gap 13.4, BUN 16, Creatinine 2.30 H, Estimated Creat Clear 32, Estimated GFR 28 L, Est GFR ( Amer) 34 L, Glucose 107 H, Calcium 8.6, Total Bilirubin 0.4, AST 26, ALT 17, Alkaline Phosphatase 109, Total Protein 7.4, Albumin 4.0, Globulin 3.4 H, Albumin/Globulin Ratio 1.2, Amylase 167 H, Lipase 121 Result diagrams: 02/21/20 20:48 02/21/20 20:48 Orders (Tests/Meds): ED MEDICATIONS Generic Name Dose Route Start Last Admin Trade Name Freq PRN Reason Stop Dose Admin Sodium Chloride 1,000 mls @ 999 mls/hr 02/21/20 21:00 02/21/20 21:11 Sod Chlor 0.9% 1000ml Bag IV 02/21/20 22:00 999 mls/hr .Q1H1M MARITZA Administration Discontinued Medications Generic Name Dose Route Start Last Admin Trade Name Freq PRN Reason Stop Dose Admin Hydromorphone HCl 1 mg 02/21/20 20:46 02/21/20 21:11 Dilaudid 2mg/Ml Syringe IV 02/21/20 20:47 1 mg ONCE ONE Administration Ondansetron HCl 4 mg 02/21/20 20:46 02/21/20 21:11 Zofran 4mg/2ml Vial IV 02/21/20 20:47 4 mg ONCE ONE Administration ORDERS Category Date Time Status CT abdomen pelvis wo con Stat Cat Scan 02/21/20 20:46 Taken Urinalysis and Microscopic Stat Lab 02/21/20 20:46 Ordered - CT Data CT Scan: Abdomen, Pelvis Time Received: 22:[address] Reviewed: Yes: I have viewed the radiologist's interpretation Preliminary Findings: Abnormal (see report ) - Physician Consults Physician Consulted: christy Reason -: Admission Additional Consult: marlen Reason -: Pt condition Male Urogenital HPI - General Chief complaint: Abdominal Pain Stated complaint: Possible Kidney stones Time Seen by Provider: 02/21/20 20:50 Mode of Arrival: Family Vehicle Source of Information: Patient, Spouse, Medical Record Limitations: No Limitations Description of Symptoms (Recalled from ER Triage Doc. by RN): right side flank and abd pain secondary to what he assumes to be another kidney stone; history of chronic renal calculi; denies n/v/d; denies issues with voiding - History of Present Illness HPI Narrative: acute onset of rt flank michael
--- NOTE | 2020-02-21 22:08 | PC.NURSE ---
on the phone with Dr. Clement
[2020-02-21 22:14] VITALS: BP 111/72; PULSE 65; RESP 18; TEMP 36.7; O2SAT 98
[2020-02-21 22:35] VITALS: BP 144/83; PULSE 78; RESP 18; TEMP 36.6; O2SAT 100; BMI 27.3
[2020-02-21 22:51] LABS: Microscopic, Urine URINE MICROSCOPIC (MICROSCOPIC)
[2020-02-21 22:54] LABS: Appearance,Urine CLEAR (Clear); Bilirubin,Urine Negative (Negative); Blood, Urine 2+ (Negative); Color,Urine YELLOW (Yellow); Glucose,Urine (UA) Negative (Negative); Ketones,Urine Negative (Negative); Leukocyte Esterase,Urine Negative (Negative); Nitrate,Urine Negative (Negative); Protein,Urine Negative (Negative); Specific Gravity, Urine 1.025 (1.005-1.030); Urobilinogen,Urine 0.2 EU/dl (0.2)
[2020-02-21 23:12] LABS: Bacteria,Urine Trace /lpf; Squamous Epithelial Cell,Urine Occasional #/hpf (0-5); WBC,Urine Occasional #/hpf (0-3)
[2020-02-22] VITALS (20 sets, daily range): BP systolic 110–140; BP diastolic 64–88; PULSE 64–90; RESP 16–20; TEMP 36.3–43; O2SAT 95–100; BMI 27.0
--- NOTE | 2020-02-22 | XR_ITS ---
PROCEDURE: XR KUB CLINICAL INDICATION: RT STONE EXTRACTION IN OR COMPARISON: CT ABDOMEN PELVIS WO CON from 02/21/2020 FINDINGS: Fluoroscopy time: 19 seconds One images submitted showing a wire overlying the right ureter and right renal collecting system with a stone in the proximal right ureteral region IMPRESSION: Fluoroscopy utilized for stone removal Dictated by: Dick De Leon MD 02/22/2020 22:46 Electronically signed by Dick De Leon MD in [place] 02/22/2020 22:46
--- NOTE | 2020-02-22 04:00 | PC.NURSE ---
PT. MAIN C/O IS OF PAIN TO R SIDE; TX WITH DILAUDID PER MAR; MILD EFFECTIVENESS REPORTED. PT. ALSO C/O NAUSEA; TX WITH ZOFRAN PER MAR; EFFECTIVENESS REPORTED. PT. REPORTS SOA THAT HAS SUSTAINED FOR THE PAST 2 WEEKS.
[2020-02-22 07:32] LABS: Basophils # 0.1 K/mm3 (0-0.2); Basophils % 0.7 % (0.1-2.0); Eosinophils # 0.3 K/mm3 (0.0-0.4); Eosinophils % 2.6 % (0.1-12.0); Hematocrit 38.5 % (42.0-52.0); Lymphocytes # 1.3 K/mm3 (0.7-4.5); Lymphocytes % 12.3 % (10-50); Mean Corpuscular HGB Conc 32.7 g/dL (31.8-35.4); Mean Corpuscular Hemoglobin 30.1 pg (27.0-31.2); Mean Platelet Volume 7.6 fl (7.4-10.4); Monocytes # 0.7 K/mm3 (0.1-1.0); Monocytes % 6.3 % (1.7-9.3); Neutrophils # 8.3 K/mm3 (1.8-7.8); Neutrophils % 78.1 % (37.0-80.0); Platelet Count 275 K/mm3 (142-424); Red Blood Count 4.19 M/mm3 (4.60-6.20); Red Cell Distribution Width 14.3 % (11.5-17.5); White Blood Count 10.6 K/mm3 (4.8-10.8)
[2020-02-22 07:33] LABS: Chloride 109 mmol/L (98-107); Sodium 139 mmol/L (136-145)
[2020-02-22 07:34] LABS: Potassium 3.7 mmoL/L (3.5-5.1)
[2020-02-22 07:37] LABS: Anion Gap 8.7 mEq/L (5-15); Calcium 7.9 mg/dl (8.4-10.2); Carbon Dioxide 25 mmol/L (22.0-30.0); Glucose 93 mg/dl (74-100)
[2020-02-22 07:41] LABS: Blood Urea Nitrogen 16 mg/dl (9-20)
[2020-02-22 07:42] LABS: Creatinine Clearance Estimated 28 mL/min (50-200); Estimated Glomerular Filt Rate 27 ml/min (>60); GFR (African American) 32 ML/MIN (>60)
--- NOTE | 2020-02-22 07:44 | HMH.PHAVTE ---
[facility] Pharm[facility] VTE Monitoring - Patient Demographics Admission date: 02/21/20 Report Date: 02/22/20 Time: 07:44 Allergies/Adverse Reactions: Patient Allergies Iodinated Contrast Media [Iodinated Contrast Media - IV Dye] Allergy (Intermediate, Verified 07/20/18 11:08) I-RASH quinine Allergy (Intermediate, Verified 07/20/18 11:08) I-RASH Height: 1.65 m Weight: 73.51 kg Patient Problems: Current Active Problems Renal colic on right side (Acute) Obstructive uropathy (Acute) MAISHA (acute kidney injury) (Acute) - VTE Risk Labs: VTE Related Lab Results Hgb 14.2 g/dL (14.1-18.0) 02/21/20 20:48 Hct 38.5 % (42.0-52.0) L 02/22/20 07:12 Plt Count 275 K/mm3 (142-424) 02/22/20 07:12 BUN 16 mg/dl (9-20) 02/21/20 20:48 Creatinine 2.30 mg/dl (0.66-1.25) H 02/21/20 20:48 Estimated Creat Clear 32 mL/min (50-200) 02/21/20 20:48 - Prophylaxis VTE Prophylaxis Ordered?: Yes Types of VTE Prophylaxis: TEDS Knee High Location of Applied Device: Bilateral Lower Extremeties - VTE Diagnosis Confirmed Treatment or plan recommended: Continue Current Treatment
--- NOTE | 2020-02-22 07:44 | HMH.PHAINT ---
MEDICATION RECONCILIATION COMPLETED ON PATIENT USING EXTERNAL FILL HISTORY FROM PHARMACY AND DISCHARGE SUMMARY FROM PREVIOUS ADMISSION. -EMY THEODORED
--- NOTE | 2020-02-22 08:08 | HMH.HP ---
*Admission Date: 02/21/20 *Chief complaint: abdominal pain *History of present illness: 74-year-old gentleman with history of prior kidney stones. Presented to the ER yesterday after worsening onset of abdominal pain. States that he still had fair urine output but had intense pain that was not getting better at home. On presentation to the ER was found to have an obstructing 5 mm kidney stone as well as acute kidney injury. Admitted for fluid resuscitation, pain management, urology consult. This morning he states his pain is better, denies nausea or vomiting, denies diarrhea. Has been straining his urine all night with no stones appreciated. Otherwise stable. [facility] History I have reviewed the patient's past medical history: Yes Medical History: Reports:: Cancer (PROSTATE), Gastroesophageal Reflux Disease(GERD), Hiatal Hernia, Kidney Stones Denies:: Diabetes Mellitus Type 1, Diabetes Mellitus Type 2, Internal Pacemaker, Lung Disease, MRSA, Seizures *Have you ever received a pneumonia vaccine?: Yes *Have you received a flu vaccine this season?: Yes Other Medical History: Reports: Cataracts, Other (Crohn's) Laterality Cases: Bilateral: Cataract Other Surgeries: Yes: Appendectomy, Cancer Surgery (CYBERKNIFE OF PROSTATE 2017), Colonoscopy, Colon Resection, EGD, Hernia Repair, Other (ESWL, Elbow, L4-5 Lami). No: Pacemaker Amputation: No - *Social History Educational Level: Completed Trade [employer] Smoking Status: Never smoker Tobacco Type: cigarettes # Packs/Day (cigarettes): 0 #Yrs smoked (if former smoker): 0 Alcohol Intake: current Alcohol Intake Frequency:: a few times a week Substance Use Type: denies use *Occupational Status:: employed Housing: house Household Members: spouse *Travel in the last 8 weeks: None Family Hx:: Cancer Review of Systems - Review of Systems Review of systems:: pertinent systems reviewed and negative unless documented below (14 point review of systems performed, pertinent positives and negatives as per HPI) - *Neurologic Denies localized weakness Meds Home Medications Medication Instructions Recorded Confirmed Type Cetirizine HCl [Zyrtec] 10 mg PO DAILYP PRN 02/22/20 02/22/20 History Fluticasone/Vilanterol [Breo 1 puff IH DAILY 02/22/20 02/22/20 History Ellipta 200-25 Mcg INH] Omeprazole [Omeprazole 40mg 40 mg PO DAILY 02/22/20 02/22/20 History Capsule] Tamsulosin HCl 0.4 mg PO BID 02/22/20 02/22/20 History Allergies Allergy/AdvReac Type Severity Reaction Status Date / Time Iodinated Contrast Media Allergy Intermediate I-RASH Verified 07/20/18 11:08 [Iodinated Contrast Media - IV Dye] quinine Allergy Intermediate I-RASH Verified 07/20/18 11:08 Exam Vital signs and Labs for Last 24 Hours: Temp Pulse Resp BP Pulse Ox 97.9 F 64 20 124/69 100 02/22/20 05:00 02/22/20 05:00 02/22/20 05:00 02/22/20 05:00 02/22/20 05:00 Laboratory Results - last 24 hr 02/21/20 20:48: WBC 14.0 H, RBC 4.62, Hgb 14.2, Hct 41.8 L, MCV 90.5, MCH 30.8, MCHC 34.1, RDW 14.2, Plt Count 314, MPV 7.4, Neut % (Auto) 81.5 H, Lymph % (Auto) 9.7 L, [place] % (Auto) 5.6, Eos % (Auto) 2.3, Baso % (Auto) 0.9, Neut # (Auto) 11.4 H, Lymph # (Auto) 1.4, [place] # (Auto) 0.8, Eos # (Auto) 0.3, Baso # (Auto) 0.1 02/21/20 20:48: Sodium 140, Potassium 3.4 L, Chloride 104, Carbon Dioxide 26, Anion Gap 13.4, BUN 16, Creatinine 2.30 H, Estimated Creat Clear 32, Estimated GFR 28 L, Est GFR ( Amer) 34 L, Glucose 107 H, Calcium 8.6, Total Bilirubin 0.4, AST 26, ALT 17, Alkaline Phosphatase 109, Total Protein 7.4, Albumin 4.0, Globulin 3.4 H, Albumin/Globulin Ratio 1.2, Amylase 167 H, Lipase 121 02/21/20 22:46: Urine Color Yellow, Urine Appearance Clear, Urine pH 6.0, Ur Specific [place] 1.025, Urine Protein Negative, Urine Glucose (UA) Negative, Urine Ketones Negative, Urine Blood 2+, Urine Nitrate Negative, Urine Bilirubin Negative, Urine Urobilinogen 0.2, Ur Leukocyte Esterase Negative, Urine RBC 10-20,
[2020-02-22 08:17] LABS: Hemoglobin 12.6 g/dL (14.1-18.0)
--- NOTE | 2020-02-22 09:45 | HMH.CONS ---
*Admission Date: 02/21/20 *Reason for consult:: Right ureteral stone *History of present illness: 74-year-old white male with history of nephrolithiasis presented to the emergency room last night with acute right renal colic. CT scan showed a 5 mm stone in the mid ureter. Patient was admitted for pain control and has had a good night as far as pain goes. His white count was 14,000 and his creatinine was 2.3. His baseline creatinine is between 1.8 and 2. He had some associated nausea vomiting but no fever or chills. Patient does have a history of a COVID-19 several weeks ago for which she was hospitalized here. He also has a history of prostate cancer status post CyberKnife 3 years ago. [facility] History Medical History: Reports:: Cancer (PROSTATE), Gastroesophageal Reflux Disease(GERD), Hiatal Hernia, Kidney Stones Denies:: Diabetes Mellitus Type 1, Diabetes Mellitus Type 2, Internal Pacemaker, Lung Disease, MRSA, Seizures *Have you ever received a pneumonia vaccine?: Yes *Have you received a flu vaccine this season?: Yes Other Medical History: Reports: Cataracts, Other (Crohn's) Laterality Cases: Bilateral: Cataract Other Surgeries: Yes: Appendectomy, Cancer Surgery (CYBERKNIFE OF PROSTATE 2017), Colonoscopy, Colon Resection, EGD, Hernia Repair, Other (ESWL, Elbow, L4-5 Lami). No: Pacemaker Amputation: No - *Social History Educational Level: Completed Trade School Smoking Status: Never smoker Tobacco Type: cigarettes # Packs/Day (cigarettes): 0 #Yrs smoked (if former smoker): 0 Alcohol Intake: current Alcohol Intake Frequency:: a few times a week Substance Use Type: denies use *Occupational Status:: employed Housing: house Household Members: spouse *Travel in the last 8 weeks: None Family Hx:: Cancer Review of Systems - Review of Systems Review of systems:: pertinent systems reviewed and negative unless documented below - *Neurologic Denies localized weakness Meds Home Medications Medication Instructions Recorded Confirmed Type Cetirizine HCl [Zyrtec] 10 mg PO DAILYP PRN 02/22/20 02/22/20 History Fluticasone/Vilanterol [Breo 1 puff IH DAILY 02/22/20 02/22/20 History Ellipta 200-25 Mcg INH] Omeprazole [Omeprazole 40mg 40 mg PO DAILY 02/22/20 02/22/20 History Capsule] Tamsulosin HCl 0.4 mg PO BID 02/22/20 02/22/20 History Allergies Allergy/AdvReac Type Severity Reaction Status Date / Time Iodinated Contrast Media Allergy Intermediate I-RASH Verified 07/20/18 11:08 [Iodinated Contrast Media - IV Dye] quinine Allergy Intermediate I-RASH Verified 07/20/18 11:08 Exam Vital signs and Labs for Last 24 Hours: Temp Pulse Resp BP Pulse Ox 98.4 F 75 16 110/75 98 02/22/20 08:00 02/22/20 08:00 02/22/20 08:00 02/22/20 08:00 02/22/20 08:00 Laboratory Results - last 24 hr 02/21/20 20:48: WBC 14.0 H, RBC 4.62, Hgb 14.2, Hct 41.8 L, MCV 90.5, MCH 30.8, MCHC 34.1, RDW 14.2, Plt Count 314, MPV 7.4, Neut % (Auto) 81.5 H, Lymph % (Auto) 9.7 L, [place] % (Auto) 5.6, Eos % (Auto) 2.3, Baso % (Auto) 0.9, Neut # (Auto) 11.4 H, Lymph # (Auto) 1.4, [place] # (Auto) 0.8, Eos # (Auto) 0.3, Baso # (Auto) 0.1 02/21/20 20:48: Sodium 140, Potassium 3.4 L, Chloride 104, Carbon Dioxide 26, Anion Gap 13.4, BUN 16, Creatinine 2.30 H, Estimated Creat Clear 32, Estimated GFR 28 L, Est GFR ( Amer) 34 L, Glucose 107 H, Calcium 8.6, Total Bilirubin 0.4, AST 26, ALT 17, Alkaline Phosphatase 109, Total Protein 7.4, Albumin 4.0, Globulin 3.4 H, Albumin/Globulin Ratio 1.2, Amylase 167 H, Lipase 121 02/21/20 22:46: Urine Color Yellow, Urine Appearance Clear, Urine pH 6.0, Ur Specific [place] 1.025, Urine Protein Negative, Urine Glucose (UA) Negative, Urine Ketones Negative, Urine Blood 2+, Urine Nitrate Negative, Urine Bilirubin Negative, Urine Urobilinogen 0.2, Ur Leukocyte Esterase Negative, Urine RBC 10-20, Urine WBC Occasional, Ur Squamous Epith Cells Occasional, Urine Bacteria Trace 02/22/20 07:12: WBC 10.6, RBC 4.19
[2020-02-22 10:14] LABS: Coronavirus 19 IgG Antibody Positive (Negative); Coronavirus 19 IgM Antibody Negative (Negative)
--- NOTE | 2020-02-22 12:46 | HMH.ANESCL ---
[facility] Anesthesia Checklist - Patient Identification Patient Identification: Arm Band - Structural Data Admitted From: Home Planned Operative Procedure/s: right ureteroscopy with stone extraction, possible stent placement Consent for Planned Operative Procedure(s) Verified: Yes Verified Documents: Surgical Consent, History and Physical - NPO Status Verified Time NPO: 00:00 - Additional verifications Anesthesia Reactions: No - Airway Assessment C-Spine Mobility Assessed: Yes (mp2) TMJ Mobility Assessed: Yes Dentition: Good Dentition - Anesthesia Plan Anesthesia Risk discussed: Yes Anesthesia Plan: Verified ASA Class: II Anesthesia Type: General [facility] History I have reviewed the patient's past medical history: Yes Medical History: Reports:: Cancer (PROSTATE), Gastroesophageal Reflux Disease(GERD), Hiatal Hernia, Lung Disease (pt states that he has residual decreased PFT's r/t covid 19. Taking Breo), Kidney Stones Denies:: Diabetes Mellitus Type 1, Diabetes Mellitus Type 2, Internal Pacemaker, MRSA, Seizures *Have you ever received a pneumonia vaccine?: Yes *Have you received a flu vaccine this season?: Yes Other Medical History: Reports: Cataracts, Other (Crohn's) Anesthesia experience/problems:: nac Laterality Cases: Bilateral: Cataract Other Surgeries: Yes: Appendectomy, Cancer Surgery (CYBERKNIFE OF PROSTATE 2017), Colonoscopy, Colon Resection, EGD, Hernia Repair, Other (ESWL, Elbow, L4-5 Lami). No: Pacemaker Amputation: No - *Social History Educational Level: Completed Trade School Smoking Status: Never smoker Tobacco Type: cigarettes # Packs/Day (cigarettes): 0 #Yrs smoked (if former smoker): 0 Alcohol Intake: current Alcohol Intake Frequency:: a few times a week Substance Use Type: denies use *Occupational Status:: employed Housing: house Household Members: spouse *Travel in the last 8 weeks: None Family Hx:: Cancer
--- NOTE | 2020-02-22 17:28 | P.PN_ITS ---
[facility] Anesthesia Record Part I Intake, IV Amount: 900 Estimated blood loss (mL): 0 Urine output (mL): 0 Blood Pressure: 122/64 SaO2: 95 Pulse Rate: 76 Respiratory Rate: 16 Temperature: 97.3 F Patient is:: Drowsy, Stable Stable to PACU at:: 17:25
--- NOTE | 2020-02-22 17:43 | P.OP_ITS ---
Date of procedure: 02/22/20 Pre-op Diagnosis:: 5 mm right proximal ureteral stone Post-op Diagnosis:: Same Procedure performed:: Right ureteroscopy, laser lithotripsy, stone extraction Surgeon:: Brad Jean MD MORTAR MAKER:: Azael Cardozo Anesthesia: GETA Estimated blood loss (mL): 0 Clinical Note:: 74-year-old white male with a right renal colic secondary to a 5.6 mm proximal right obstructing stone. Operative findings:: Stone in the proximal ureter was broken with the laser and stone fragments extracted without difficulty. Operative note:: Patient taken to the operating room after informed consent was obtained. Was placed on the operating table in the supine position and general anesthesia ad ministered. Preoperative antibiotics administered. He was placed into the dorsolithotomy position and prepped and draped in the standard surgical fashion. A 22 Ed passed into the urethra and into the bladder without difficulty. Patient did have a large median lobe making the ureters somewhat difficult to observe. A guidewire was attempted be passed in the right ureteral orifice but I suspected some J hooking secondary to his prostate enlargement and a ureteral catheter was passed through the scope and a Glidewire was used and it passed into the more proximal ureter and into the kidney without difficulty. The stone was visible on fluoroscopy. The cystoscope removed and our semirigid ureteroscope passed into the bladder and into the ureter. We do not have any trouble negotiating the distal ureter as the guidewire may have straightened out some. The ureter was quite capacious up to the proximal ureteral stone. The triceps stone basket then used to try to grasp the stone and bring it through a narrow segment but we were unable to do so. The 200 nm laser fiber then passed through the ureteroscope and the stone broken into 3 fragments. These fragments were removed with use of a 2.4 [place] nitinol stone basket. The ureteroscope then removed. A stent was not placed and the guidewire was removed. Patient tolerated procedure well without complication. Condition: stable Disposition: PACU Specimens:: Ureteral stone fragment Complications:: None
--- NOTE | 2020-02-22 18:46 | P.PN_ITS ---
[facility] Anesthesia Record Part II Discharge Time: 17:55 Destination: Medical Surgical Department PACU nurse assessment reviewed?: Yes Patient Condition:: Good Anesthesia Complications:: None Swallowing reflex intact?: Yes Cyanosis?: No Blood Pressure: 134/77 Pulse Rate: 77 Temperature: 97.8 F Mental Status: Alert & Oriented Pain level:: 3 Nausea and/or vomitting:: None Intake, IV Amount: 0
--- NOTE | 2020-02-22 19:12 | PC.NURSE ---
report given to roderick
--- NOTE | 2020-02-22 19:36 | PC.NURSE ---
PT HAS BEEN OFF THE FLOOR FOR MOST OF THE SHIFT. SINCE ARRIVING BACK PT HAS TOLERATED REGULAR DIET. PT HAS URINATED 200 ML'S OF BLOOD TINGED URINE. AMBULATED TO THE BATHROOM. LUNG SOUNDS CLEAR. BOWEL SOUNDS NORMAL. VSS. WILL CONTINUE TO MONITOR.
--- NOTE | 2020-02-22 23:44 | PC.NURSE ---
PT REFUSED LAST 2 POST OP VITALS. HE REQUESTED THAT VITALS NOT BE TAKEN IF HE IS ASLEEP. PT IS RESTING COMFORTABLY WITH EYES CLOSED. WILL CONTINUE TO MONITOR
[2020-02-23 04:00] VITALS: BP 123/80; PULSE 59; RESP 20; TEMP 36.5; O2SAT 98
--- NOTE | 2020-02-23 04:17 | PC.NURSE ---
ALERT AND ORIENTED X4. PT HAS RESTED WELL THIS SHIFT. PAIN MEDS ADMINISTERED PER MAR, TYPICALLY PAIN INCREASES AFTER URINATION. URINE IS LIGHT PINK TINGED. NO REPORTED BM. PT REFUSED IVF. NO DISTRESS NOTED. VSS. SAFETY MEASURES IN PLACE. WILL CONTINUE TO MONITOR
[2020-02-23 05:06] VITALS: BMI 27.0
[2020-02-23 07:59] VITALS: BP 123/74; PULSE 56; RESP 18; TEMP 36.8; O2SAT 99
--- NOTE | 2020-02-23 07:59 | HMH.DCSUM ---
General - General Admission date:: 02/21/20 Discharge date: 02/23/20 HPI HPI: 74-year-old gentleman with history of prior kidney stones. Presented to the ER yesterday after worsening onset of abdominal pain. States that he still had fair urine output but had intense pain that was not getting better at home. On presentation to the ER was found to have an obstructing 5 mm kidney stone as well as acute kidney injury. Admitted for fluid resuscitation, pain management, urology consult. This morning he states his pain is better, denies nausea or vomiting, denies diarrhea. Has been straining his urine all night with no stones appreciated. Otherwise stable. Hospital Course Hospital Course: Patient was admitted, placed on IV antibiotics, intravenous pain medication and fluids, urology was consulted, and late yesterday cystoscopy with stone extraction/crushing was performed with excellent results. Patient was watched overnight, had some urinary spasm with pain and some tea colored urine but urine flow was excellent and this morning feels much better. Patient will be discharged on pain medication for urinary spasm, Cefdinir for antibiotic coverage and routine follow-up in my office next Tuesday as scheduled. Objective Vital signs: Temp Pulse Resp BP Pulse Ox 97.7 F 59 L 20 123/80 98 02/23/20 04:00 02/23/20 04:00 02/23/20 04:00 02/23/20 04:00 02/23/20 04:00 no acute distress - *Routine HEENT Exam Head: Present: normocephalic Eye: Present: EOMI, PERRL ENT: Present: mucous membranes moist - *Routine Neck Exam Present: supple - *Routine Respiratory Exam Present: CTA bilaterally - *Routine Cardiovascular Exam Present: RRR - *Routine Abdominal Exam Present: soft, normoactive bowel sounds. Absent: tenderness - *Routine Extremities Exam Absent: cyanosis, clubbing, edema - *Routine Skin Exam Present: warm. Absent: rash - Detailed Eye Exam Eyelids: Bilateral normal inspection Results Labs on day of discharge: Labs from last 24 hours 02/22/20 02/22/20 07:12 07:12 Hgb 12.6 L D SARS-CoV-2 IgG Ab (Rapid) Positive A SARS-CoV-2 IgM Ab (Rapid) Negative DS: Diagnosis - Discharge Diagnosis (1) MAISHA (acute kidney injury) Status: Resolved (2) Obstructive uropathy Status: Resolved (3) Renal colic on right side Status: Resolved Discharge Plan - Patient Discharge Instructions ACTIVITY: Continue current activity DIET: continue same diet Patient Instructions: Kidney Stones -- Adult, DI for Kidney Stones, DI for Chronic Pain -- Adult, DI for Surgical Site Infection, DI for Acute Kidney Injury - Follow up Plan Follow up with: Selvin Cardenas MD [Primary Care Provider] - 02/29/20 Disposition: Home, [facility] Medications: Home Medications Medication Instructions Recorded Confirmed Type Cetirizine HCl [Zyrtec] 10 mg PO DAILYP PRN 02/22/20 02/22/20 History Fluticasone/Vilanterol [Breo 1 puff IH DAILY 02/22/20 02/22/20 History Ellipta 200-25 Mcg INH] Omeprazole [Omeprazole 40mg 40 mg PO DAILY 02/22/20 02/22/20 History Capsule] Tamsulosin HCl 0.4 mg PO BID 02/22/20 02/22/20 History Cefdinir [Omnicef 300mg Capsule] 300 mg PO BID #14 cap 02/23/20 Rx Oxycodone HCl/Acetaminophen 1 tab PO Q6H PRN #15 tab 02/23/20 Rx [Percocet 5/325mg tablet] Prescriptions/Medication Reconciliation: New Oxycodone HCl/Acetaminophen [Percocet 5/325mg tablet] 1 tab PO Q6H PRN #15 tab PRN Reason: Moderate Pain Cefdinir [Omnicef 300mg Capsule] 300 mg PO BID #14 cap Continued Omeprazole [Omeprazole 40mg Capsule] 40 mg PO DAILY Fluticasone/Vilanterol [Breo Ellipta 200-25 Mcg INH] 1 puff IH DAILY Tamsulosin HCl 0.4 mg PO BID Cetirizine HCl [Zyrtec] 10 mg PO DAILYP PRN PRN Reason: SEASONAL ALLERGIES - Problem Reconciliation Problems Reviewed?: Yes
[2020-03-09 17:36] LABS: Ca oxalate dihydrate 20
[2020-03-14 17:38] LABS: Photo TO FOLLOW
== END 2020-02-23 09:42 | disposition home or self-care (01) | DRG 669 ==
LOC: ER 22:04 → 2ND 22:25
PROVIDERS: Urology; Admitting Provider Internal Medicine Adolescent Medicine; Emergency Provider Emergency Medicine; PCP Internal Medicine Adolescent Medicine; Visit Provider Internal Medicine Adolescent Medicine
PROC: 0TC68ZZ Extirpation of Matter from Right Ureter, Via Natural or Artificial Opening Endoscopic (ICD-10-PCS; CPT 52352; principal; 2020-02-22 11:35)
DX: N20.1 Calculus of ureter; N17.9 Acute kidney failure, unspecified; K50.90 Crohn's disease, unspecified, without complications; Z86.19 Personal history of other infectious and parasitic diseases; Z96.1 Presence of intraocular lens; Z88.8 Allergy status to other drugs, medicaments and biological substances; Z79.51 Long term (current) use of inhaled steroids; Z79.899 Other long term (current) drug therapy; Z85.46 Personal history of malignant neoplasm of prostate; K21.9 Gastro-esophageal reflux disease without esophagitis
CPT/HCPCS: 52353; 36415; 74018; 74176; 76000; 80048; 80053; 81001; 82150; 82370; 83690; 85025; 86328; 96365; 96375; 99283; 99284; C1769; J2405

== ENCOUNTER → 2020-02-25 10:57 | Outpatient (CLI) | payer BC, SELFPAY ==
--- NOTE | 2020-02-25 11:00 | XR_ITS ---
PROCEDURE: XR KUB CLINICAL INDICATION: kidney stone Follow-up renal stone COMPARISON: KUB KUB (SINGLE VIEW) from 06/14/2014 CT ABDOMEN PELVIS WO CON from 02/21/2020 XR KUB from 02/22/2020 FINDINGS: There are multiple bilateral renal calculi. There is a 5 mm calcification to the right of L3-L4 consistent with a mid ureteral stone. Multiple left renal calculi are also noted. Suture line is present in the right lower abdominal area. Prostate seed implants are present. IMPRESSION: 5 mm right mid ureteral calculus with bilateral nephrolithiasis Dictated by: Dick De Leon MD 02/25/2020 11:21 Electronically signed by Dick De Leon MD in [place] 02/25/2020 11:21
== END ==
PROVIDERS: PCP Internal Medicine Adolescent Medicine; Visit Provider Urology
DX: N20.0 Calculus of kidney (principal)
CPT/HCPCS: 74018

== ENCOUNTER → 2020-04-15 15:09 | Outpatient (CLI) | payer BC, SELFPAY ==
--- NOTE | 2020-04-15 15:12 | XR_ITS ---
PROCEDURE: XR CHEST 2V CLINICAL HISTORY: DYSPNEA ON EXERTION Follow-up COVID-19 COMPARISON: XR CHEST PORTABLE from 12/09/2019 XR CHEST 2V from 02/12/2020 FINDINGS: No acute bony abnormalities. The cardiomediastinal silhouette and pulmonary vascularity are within normal limits. There is no consolidation, pulmonary vascular congestion or pleural effusion of the visualized lungs. Linear subsegmental atelectatic changes are seen in the left lung base. A moderate to large hiatal hernia is seen. IMPRESSION: 1. No acute findings. Possible COPD. Dictated by: Rachele Krishnan 04/15/2020 15:33 Electronically signed by Rachele Krishnan in [facility] 04/15/2020 15:33
== END ==
PROVIDERS: PCP Internal Medicine Adolescent Medicine; Visit Provider Internal Medicine Adolescent Medicine
DX: R06.00 Dyspnea, unspecified (principal)
CPT/HCPCS: 71046

== ENCOUNTER → 2020-04-15 15:35 | Outpatient (POV) | payer BC, SELFPAY | PROVIDERS: PCP Internal Medicine Adolescent Medicine; Visit Provider Dermatology | DX: Z00.00 Encounter for general adult medical examination without abnormal findings (principal) ==

== ENCOUNTER → 2020-04-16 07:05 | Outpatient (CLI) | payer BC, SELFPAY ==
[2020-04-16 07:30] LABS: Basophils # 0.1 K/mm3 (0-0.2); Basophils % 0.9 % (0.1-2.0); Eosinophils # 0.2 K/mm3 (0.0-0.4); Eosinophils % 2.3 % (0.1-12.0); Hematocrit 40.8 % (42.0-52.0); Hemoglobin 13.8 g/dL (14.1-18.0); Lymphocytes # 1.2 K/mm3 (0.7-4.5); Lymphocytes % 13.7 % (10-50); Mean Corpuscular HGB Conc 33.9 g/dL (31.8-35.4); Mean Corpuscular Hemoglobin 30.7 pg (27.0-31.2); Mean Corpuscular Volume 90.7 fl (80-94); Mean Platelet Volume 7.3 fl (7.4-10.4); Monocytes # 0.4 K/mm3 (0.1-1.0); Monocytes % 4.7 % (1.7-9.3); Neutrophils # 7.1 K/mm3 (1.8-7.8); Neutrophils % 78.4 % (37.0-80.0); Platelet Count 271 K/mm3 (142-424); Red Cell Distribution Width 13.1 % (11.5-17.5); White Blood Count 9.1 K/mm3 (4.8-10.8)
[2020-04-16 10:48] LABS: Chloride 105 mmol/L (98-107); Potassium 4.1 mmoL/L (3.5-5.1); Sodium 139 mmol/L (136-145)
[2020-04-16 10:50] LABS: Alanine Aminotransferase 10 U/L (12-78); Aspartate Amino Transferase 19 U/L (17-59); Blood Urea Nitrogen 18 mg/dl (9-20); Estimated Glomerular Filt Rate 42 ml/min (>60); GFR (African American) 51 ML/MIN (>60)
[2020-04-16 10:51] LABS: Albumin Level 3.2 g/dl (3.5-5.0); Albumin/Globulin Ratio 1.1 (1.1-1.8); Alkaline Phosphatase 88 U/L (38-126); Anion Gap 11.1 mEq/L (5-15); Bilirubin,Total 0.5 mg/dl (0.2-1.3); Calcium 8.5 mg/dl (8.4-10.2); Carbon Dioxide 27 mmol/L (22.0-30.0); Globulin 2.8 g/dL (1.3-3.2); Glucose 80 mg/dl (74-100)
[2020-04-16 12:29] LABS: 25-OH Vitamin D, Total 17.4 ng/mL (30-100)
[2020-04-16 13:22] LABS: Free Thyroxine Index 2.4 ug/dL (5.93-13.13); Triiodothryronine (T3) Uptake 34 % (23.5-40.5)
[2020-04-17 10:12] LABS: Testosterone,Total 454 ng/dL (264-916); Vitamin B12 108 pg/mL (232-1245)
== END ==
PROVIDERS: Visit Provider Internal Medicine Adolescent Medicine
DX: R06.00 Dyspnea, unspecified (principal); R53.81 Other malaise; E55.9 Vitamin D deficiency, unspecified; Z85.46 Personal history of malignant neoplasm of prostate
CPT/HCPCS: 36415; 80053; 82306; 82533; 82607; 84403; 84436; 84443; 84479; 85025

== ENCOUNTER → 2020-04-25 12:53 | Outpatient (CLI) | payer BC, SELFPAY ==
--- NOTE | 2020-04-25 12:54 | CA_ITS ---
APPROVED REPORT EXAM: Comprehensive 2D, Doppler, and color-flow Echocardiogram [employer] Supervisor: Jen Garcia RDCS Ht: 5 ft 9 in Wt: 164lbs BSA: 1.90 BP: 120/78 mmHg Indications: SOA,POST COVID19 2D Dimensions LVOT 1.70 cm (M/F) 1.5-2.5 M-Mode Dimensions RVDd 2.70 cm (0.9-2.6) LVDd 4.85 cm (3.5-5.7) LVDs 3.60 cm (3.5-5.7) IVSd 1.27 cm (0.6-1.1) PWd 0.91 cm (0.6-1.1) EF (Teich) 50.60% FS 25.80% EDV (Teich) 110.20 mL ESV (Teich) 54.40 mL LV Diastology E/A Ratio 0.61 Mitral Valve MV A Velocity 77.00 (40-130 cm/s) Left Ventricle Left atrium is mildly enlarged, left ventricle is normal size, left ventricle wall thickness is upper limit of the normal, there is preserved left ventricular systolic function, visually estimated ejection fraction 55% with no regional wall motion abnormality, grade 1 diastolic dysfunction seen without tissue Doppler evidence of raise left atrial pressure. Right Ventricle Right atrium and right ventricle are normal size and contractility. Aortic Valve Aortic valve is thickened and calcified leaflet continue to display good mobility, there is no aortic stenosis or aortic insufficiency. Mitral Valve Mitral valve leaflets are minimally thickened, there is mild mitral regurgitation. Tricuspid Valve Tricuspid valve is grossly normal, there is mild tricuspid regurgitation, calculated right ventricular systolic pressure is 27 mmHg. Pulmonic Valve Pulmonic valve is poorly visualized. Great Vessels Aortic root is normal size. Pericardium No significant pericardial effusion noted. Conclusion 1. Mildly enlarged left atrium, normal left ventricular size, visually estimated ejection fraction 55% with no regional wall motion abnormality, grade 1 diastolic dysfunction seen without tissue Doppler evidence of raise left atrial pressure. 2. Thickened and calcified aortic valve without aortic stenosis or aortic insufficiency. 3. Mild mitral and tricuspid regurgitation, calculated right ventricular systolic pressure is within normal range. 4. No significant pericardial effusion noted. Electronically signed by : Narinder Tejeda, 04/28/2020 18:52:14
== END ==
PROVIDERS: PCP Internal Medicine Adolescent Medicine; Visit Provider Internal Medicine Pulmonary Disease
DX: R06.00 Dyspnea, unspecified (principal)
CPT/HCPCS: 93306; 94060; 94618; 94726; 94729

== ENCOUNTER → 2020-12-15 13:20 | Outpatient (CLI) | payer MEDICARE, OTHER, SELFPAY ==
[2020-12-15 13:30] LABS: MANUAL DIFFERENTIAL MANUAL DIFFERENTIAL (MANUAL DIFF)
--- NOTE | 2020-12-15 13:34 | XR_ITS ---
PROCEDURE: XR CHEST 2V CLINICAL HISTORY: WEIGHT LOSS COMPARISON: CR XR CHEST PORTABLE from 12/09/2019 CR XR CHEST 2V from 02/12/2020 CR XR CHEST 2V from 04/15/2020 FINDINGS: The cardiomediastinal silhouette and pulmonary vascularity are within normal limits. The lungs are clear without infiltrates, suspicious nodules, or pleural effusions. Moderate hiatus hernia is noted. No acute bony abnormalities. Old rib fractures on the left. IMPRESSION: No acute cardiopulmonary process. Dictated by: Edwige Ellis 12/15/2020 14:50 Edwige Ellis in [facility] 12/15/2020 14:50
[2020-12-15 14:21] LABS: Basophils # 0.1 K/mm3 (0-0.2); Basophils % 0.6 % (0.1-2.0); Eosinophils # 0.1 K/mm3 (0.0-0.4); Eosinophils % 1.1 % (0.1-12.0); Hematocrit 42.5 % (42.0-52.0); Hemoglobin 13.5 g/dL (14.1-18.0); Lymphocytes # 1.2 K/mm3 (0.7-4.5); Lymphocytes % 11.7 % (10-50); Mean Corpuscular HGB Conc 31.8 g/dL (31.8-35.4); Mean Corpuscular Hemoglobin 28.5 pg (27.0-31.2); Mean Corpuscular Volume 89.5 fl (80-94); Mean Platelet Volume 7.6 fl (7.4-10.4); Monocytes # 0.4 K/mm3 (0.1-1.0); Monocytes % 3.9 % (1.7-9.3); Neutrophils # 8.4 K/mm3 (1.8-7.8); Neutrophils % 82.7 % (37.0-80.0); Platelet Count 292 K/mm3 (142-424); Red Blood Count 4.75 M/mm3 (4.60-6.20); Red Cell Distribution Width 13.4 % (11.5-17.5); White Blood Count 10.1 K/mm3 (4.8-10.8)
[2020-12-15 14:29] LABS: Alanine Aminotransferase 12 U/L (12-78); Albumin Level 3.7 g/dl (3.5-5.0); Albumin/Globulin Ratio 1.4 (1.1-1.8); Alkaline Phosphatase 96 U/L (38-126); Anion Gap 9.8 mEq/L (5-15); Aspartate Amino Transferase 20 U/L (17-59); Bilirubin,Total 0.5 mg/dl (0.2-1.3); Blood Urea Nitrogen 16 mg/dl (9-20); Calcium 8.6 mg/dl (8.4-10.2); Carbon Dioxide 25 mmol/L (22.0-30.0); Chloride 106 mmol/L (98-107); Estimated Glomerular Filt Rate 46 ml/min (>60); GFR (African American) 55 ML/MIN (>60); Globulin 2.6 g/dL (1.3-3.2); Glucose 114 mg/dl (74-100); Magnesium 1.6 mg/dl (1.6-2.3); Potassium 3.8 mmoL/L (3.5-5.1); Sodium 137 mmol/L (136-145); Total Protein,Serum 6.3 g/dl (6.3-8.2)
[2020-12-15 14:48] LABS: 25-OH Vitamin D, Total 20.9 ng/mL (30-100); Free Thyroxine Index 2.6 ug/dL (5.93-13.13); T4 (Thyroxine) 7.3 ug/dl (5.53-11.0); Triiodothryronine (T3) Uptake 36 % (23.5-40.5)
[2020-12-15 15:01] LABS: Thyroid Stimulating Hormone 1.62 uIU/mL (0.465-4.68)
[2020-12-15 15:03] LABS: Prostate Specific Ag, Diagnost < 0.064 ng/ml (0.0-4.0)
[2020-12-15 15:20] LABS: Vitamin B12 < 159 pg/mL (239-931)
[2020-12-15 19:52] LABS: Lymphocytes % 7 % (10-50); Monocytes % 4 % (2-9); Neutrophils % 89 % (42-76); Total Cells Counted 100
[2020-12-15 19:53] LABS: Platelet Estimate Normal; RBC Morphology Normal
== END ==
PROVIDERS: PCP Internal Medicine Adolescent Medicine; Visit Provider Internal Medicine Adolescent Medicine
DX: R53.81 Other malaise (principal); R53.83 Other fatigue; R63.4 Abnormal weight loss; E55.9 Vitamin D deficiency, unspecified; Z85.46 Personal history of malignant neoplasm of prostate
CPT/HCPCS: 36415; 71046; 80053; 82306; 82607; 83735; 84153; 84436; 84443; 84479; 85007; 85014; 85018; 85048; 85049

== ENCOUNTER → 2020-12-18 12:40 | Outpatient (CLI) | payer MEDICARE, OTHER, SELFPAY | PROVIDERS: Visit Provider Internal Medicine Adolescent Medicine | DX: E53.8 Deficiency of other specified B group vitamins (principal) | CPT/HCPCS: 36415 ==

== ENCOUNTER → 2021-06-18 10:39 | Outpatient (CLI) | payer MEDICARE, OTHER, SELFPAY ==
--- NOTE | 2021-06-18 10:56 | XR_ITS ---
PROCEDURE: XR CHEST 2V CLINICAL HISTORY: TACHYCARDIA COMPARISON: CR XR CHEST 2V from 02/12/[address] ABDOMEN PELVIS WO CON from 02/21/2020 CR XR CHEST 2V from 04/15/2020 CR XR CHEST 2V from 12/15/2020 FINDINGS: Moderate-sized hiatal hernia. Posterior diaphragmatic hernia noted on the right unchanged. There are old fractures of the left 6 7th 8th and 9th ribs. There is mild thoracic curvature convex left Unremarkable cardiovascular structures. No lobar consolidation or collapse. Faint nodular opacity noted in the right lower lung zone at the 6th interspace and may be due to nipple shadow. IMPRESSION: Hiatal hernia and posterior right diaphragmatic hernia Probable nipple shadow right lung base No acute finding. Dictated by: Dick De Leon MD 06/18/2021 11:23 Dick De Leon MD in [facility] 06/18/2021 11:23
[2021-06-18 11:07] LABS: Basophils # 0.1 K/mm3 (0-0.2); Basophils % 0.9 % (0.1-2.0); Eosinophils # 0.3 K/mm3 (0.0-0.4); Eosinophils % 2.8 % (0.1-12.0); Hematocrit 43.6 % (42.0-52.0); Hemoglobin 14.6 g/dL (14.1-18.0); Lymphocytes # 1.3 K/mm3 (0.7-4.5); Lymphocytes % 13.3 % (10-50); Mean Corpuscular HGB Conc 33.4 g/dL (31.8-35.4); Mean Corpuscular Hemoglobin 30.3 pg (27.0-31.2); Mean Corpuscular Volume 90.5 fl (80-94); Mean Platelet Volume 7.8 fl (7.4-10.4); Monocytes # 0.5 K/mm3 (0.1-1.0); Monocytes % 5.6 % (1.7-9.3); Neutrophils # 7.3 K/mm3 (1.8-7.8); Neutrophils % 77.4 % (37.0-80.0); Platelet Count 343 K/mm3 (142-424); Red Blood Count 4.81 M/mm3 (4.60-6.20); Red Cell Distribution Width 13.4 % (11.5-17.5); White Blood Count 9.5 K/mm3 (4.8-10.8)
[2021-06-18 11:32] LABS: Alanine Aminotransferase 12 U/L (12-78); Albumin Level 3.3 g/dl (3.5-5.0); Albumin/Globulin Ratio 1.2 (1.1-1.8); Alkaline Phosphatase 99 U/L (38-126); Anion Gap 9.3 mEq/L (5-15); Aspartate Amino Transferase 19 U/L (17-59); Bilirubin,Total 0.3 mg/dl (0.2-1.3); Blood Urea Nitrogen 15 mg/dl (9-20); Calcium 8.6 mg/dl (8.4-10.2); Carbon Dioxide 27 mmol/L (22.0-30.0); Chloride 108 mmol/L (98-107); Chol/HDL Ratio 2.7 (1-3.5); Cholesterol 148 mg/dl (140-200); Estimated Glomerular Filt Rate 39 ml/min (>60); GFR (African American) 48 ML/MIN (>60); Globulin 2.7 g/dL (1.3-3.2); Glucose 94 mg/dl (74-100); HDL Cholesterol 55 mg/dl (40-60); Potassium 4.3 mmoL/L (3.5-5.1); Sodium 140 mmol/L (136-145); Triglycerides 104 mg/dl (30-150); VLDL Cholesterol 21 mg/dL (0-40)
[2021-06-18 11:44] LABS: Direct LDL Cholesterol 73.24 mg/dL (100-129)
[2021-06-18 11:45] LABS: NT Pro Brain Natriuretic Pep. 730 pg/mL (0-450)
[2021-06-18 11:48] LABS: Troponin I < 0.01 ng/ml (0.00-0.034)
[2021-06-18 11:51] LABS: 25-OH Vitamin D, Total 55.8 ng/mL (30-100)
[2021-06-18 12:14] LABS: Prostate Specific Ag, Diagnost < 0.064 ng/ml (0.0-4.0)
[2021-06-18 12:21] LABS: Vitamin B12 238 pg/mL (239-931)
[2021-06-24 14:15] LABS: Testosterone, Total, LC/MS 331.9 ng/dL (264.0-916.0); Testosterone,Free 8.3 pg/mL (6.6-18.1)
== END ==
PROVIDERS: Visit Provider Internal Medicine Adolescent Medicine
DX: R00.0 Tachycardia, unspecified (principal); R06.09 Other forms of dyspnea; E53.8 Deficiency of other specified B group vitamins; E55.9 Vitamin D deficiency, unspecified; N40.1 Benign prostatic hyperplasia with lower urinary tract symptoms; Z79.899 Other long term (current) drug therapy
CPT/HCPCS: 36415; 71046; 80053; 80061; 82306; 82607; 83880; 84153; 84402; 84403; 84484; 85025

== ENCOUNTER → 2021-06-22 07:15 | Outpatient (CLI) | payer MEDICARE, OTHER, SELFPAY ==
--- NOTE | 2021-06-22 07:24 | CA_ITS ---
APPROVED REPORT EXAM: Comprehensive 2D, Doppler, and color-flow Echocardiogram Electrical Discharge Machine Operator: Jen Garcia RDCS Ht: 5 ft 8 in Wt: 160lbs BSA: 1.86 BP: 120/68 mmHg Indications: DYSON,POST COVID 2D Dimensions LVDd 2.20 cm M: 4.2 - 5.9 LA Volume 107.50 mL LA Volume Index 57.79 mL/m2 (M/F) 16-34 M-Mode Dimensions RVDd 2.76 cm (0.9-2.6) LA Diam 3.30 cm (1.9-4.0) LVDd 5.74 cm (3.5-5.7) Ao Diam 3.20 cm (2.0-3.7) LVDs 4.36 cm (3.5-5.7) IVSd 0.66 cm (0.6-1.1) PWd 0.82 cm (0.6-1.1) EF (Teich) 47.20% EPSs 2.04 cm FS 24.00% EDV (Teich) 162.60 mL ESV (Teich) 85.80 mL LV Diastology E Decel Time 133.00 (160-240 msec) E/A Ratio 0.7 MED E' 6.50 (< 7 cm/sec) E'/MED E' Ratio 7.97 (>14) LAT E' 6.20 (<10 cm/sec) E/LAT E' Ratio 8.35 (>14) Mitral Valve MV E Max Maurisio. 52.00 (40-130 cm/s) MV A Velocity 79.00 (40-130 cm/s) E/A Ratio 0.66 MV Decel. Time 133.00 (160-240 ms) MV PHT 39.00 ms Tricuspid Valve TR P. Velocity 300.00 cm/s RAP Estimate 10.00 mmHg RVSP 46.00 mmHg Left Ventricle Left atrium is mildly enlarged, left ventricle is normal size, left ventricle wall thickness is upper limit of normal, there is preserved left ventricular systolic function, visually estimated ejection fraction 55% with no regional wall motion abnormality, grade 1 diastolic dysfunction seen without tissue Doppler evidence of raise left atrial pressure. Right Ventricle Right atrium and right ventricle are qualitatively mildly enlarged with normal contractility. Aortic Valve Aortic valve is minimally thickened and fibrosed, there is no aortic stenosis or aortic insufficiency. Mitral Valve Mitral valve is grossly normal, there is mild mitral regurgitation Tricuspid Valve Tricuspid valve grossly normal, there is mild tricuspid regurgitation, calculated right ventricular systolic pressure is 46 mmHg. Pulmonic Valve Pulmonic valve is poorly visualized. Great Vessels Aortic root is normal size. Inferior vena cava is normal size with normal inspiratory collapse. Pericardium No significant pericardial effusion noted. Conclusion 1. Mild biatrial enlargement, normal left ventricular size, visually estimated ejection fraction 55% with no regional wall motion abnormality, grade 1 diastolic dysfunction seen without tissue Doppler evidence of raise left atrial pressure. 2. Qualitatively mildly enlarged right ventricle with normal contractility. 3. Mild mitral and tricuspid regurgitation, calculated right ventricular systolic pressure is 46 mmHg. 4. No significant pericardial effusion noted, inferior vena cava is normal size with normal inspiratory collapse. Electronically signed by : Narinder Tejeda MD 06/22/2021 18:50:14
== END ==
PROVIDERS: PCP Internal Medicine Adolescent Medicine; Visit Provider Internal Medicine Adolescent Medicine
DX: R06.09 Other forms of dyspnea (principal); R79.89 Other specified abnormal findings of blood chemistry
CPT/HCPCS: 93306

== ENCOUNTER → 2021-11-21 10:28 | Outpatient (CLI) | payer MEDICARE, OTHER, SELFPAY ==
--- NOTE | 2021-11-21 10:38 | XR_ITS ---
PROCEDURE INFORMATION: Exam: XR Right Hand Exam date and time: 11/21/2021 10:38 AM Age: 75 years old Clinical indication: Pain; Hand; Bilateral; Additional info: Pain osteoarthritis TECHNIQUE: Imaging protocol: XR Right hand. Views: 1 or 2 views. COMPARISON: No relevant prior studies available. FINDINGS: Bones/joints: Joint spaces appear relatively preserved with only slight osteoarthritic changes. No evidence of an acute fracture or dislocation. Soft tissues: Normal. IMPRESSION: No acute process. Otherwise, as above.
--- NOTE | 2021-11-21 10:38 | XR_ITS ---
PROCEDURE INFORMATION: Exam: XR Left Hand Exam date and time: 11/21/2021 10:38 AM Age: 75 years old Clinical indication: Pain; Hand; Bilateral; Additional info: Osteoarthritis pain TECHNIQUE: Imaging protocol: XR Left hand. Views: 1 or 2 views. COMPARISON: No relevant prior studies available. FINDINGS: Bones/joints: Joint spaces appear relatively preserved with only slight osteoarthritic changes. No evidence of osteolysis. No evidence of an acute fracture or dislocation. Soft tissues: Normal. IMPRESSION: No acute process. Otherwise, as above.
== END ==
PROVIDERS: PCP Internal Medicine Adolescent Medicine; Referring Provider Internal Medicine Adolescent Medicine; Visit Provider Internal Medicine Adolescent Medicine
DX: M19.042 Primary osteoarthritis, left hand (principal); M19.041 Primary osteoarthritis, right hand
CPT/HCPCS: 73120